=== PATIENT | female | born 1965 | race Two or more races ===

== ENCOUNTER → 2016-11-04 | Outpatient (REF) | payer OTHER ==
[~2016-11-04] MED LIST: /QUET10TA OR; AMBI10TA; ATIV0.5T; CELE20TA OR; CELE40TA; CLARITIN PO; CLARITIN10 PO; IBUP80TA PO; LEVO750T PO; NAPROS500 PO; PRIL40CA PO; ULTR50TA PO; ZITH250T OR
== END ==
LOC: M SFHCADAM 09:38
PROVIDERS: ATTEND Family Medicine
DX: R35.0 Frequency of micturition (principal)

== ENCOUNTER 2016-11-12 04:08 | Emergency (ER) | payer OTHER ==
[~2016-11-12] VITALS: Ht 157.5 cm; Wt 59.0 kg
[2016-11-12 04:18] VITALS: BP 106/71
== END 2016-11-12 05:45 | disposition left against medical advice (07) ==
LOC: M ED 05:38
DX: R05 Cough (principal); Z53.21 Procedure and treatment not carried out due to patient leaving prior to being seen by health care provider

== ENCOUNTER → 2016-11-16 | Outpatient (REF) | payer OTHER ==
[2016-11-16 12:36] LABS: BASO # 0.1 K/mm3 (0.0-0.2); BASO % 0.4 % (0.0-1.0); EOS # 0.5 K/mm3 (0.0-0.50); EOS % 3.2 % (0.0-3.0); LARGE UNSTAINED CELL # 0.2 K/mm3 (0.0-0.4); LARGE UNSTAINED CELL % 1.2 % (0.0-4.0); LYMPH # 3.1 K/mm3 (1.5-4.5); LYMPH % 18.9 % (24.0-44.0); MEAN CORPUSCULAR HEMOGLOBIN 34.8 pg (27.0-33.0); MEAN CORPUSCULAR HGB CONC 33.2 g/dl (32.0-36.5); MEAN CORPUSCULAR VOLUME 104.8 fl (80.0-96.0); MONO # 0.7 K/mm3 (0.0-0.8); NEUTROPHILS # 11.9 K/mm3 (1.8-7.7); NEUTROPHILS % 72.2 % (36.0-66.0); PLATELET COUNT, AUTOMATED 284 k/mm3 (150-450); RED CELL DISTRIBUTION WIDTH 11.9 % (11.5-14.5); WHITE BLOOD COUNT 16.5 K/mm3 (4.0-10.0)
[2016-11-16 12:46] LABS: ALBUMIN 3.5 GM/DL (3.2-5.2); ALKALINE PHOSPHATASE 85 U/L (45-117); ALT/SGPT 22 U/L (12-78); ANION GAP 7 MEQ/L (8-16); AST/SGOT 16 U/L (15-37); BILIRUBIN,TOTAL 0.5 MG/DL (0.2-1.0); BLOOD UREA NITROGEN 11 MG/DL (7-18); CALCIUM LEVEL 9.1 MG/DL (8.5-10.1); CARBON DIOXIDE LEVEL 28 MEQ/L (21-32); CHLORIDE LEVEL 108 MEQ/L (98-107); CHOLESTEROL LEVEL 224 MG/DL (<200); CREATININE FOR GFR 0.91 MG/DL (0.55-1.02); GLOMERULAR FILTRATION RATE > 60.0 (>51); GLUCOSE, FASTING 133 MG/DL (70-105); POTASSIUM SERUM 3.9 MEQ/L (3.5-5.1); SODIUM LEVEL 143 MEQ/L (136-145); TOTAL PROTEIN 7.1 GM/DL (6.4-8.2); TRIGLYCERIDES LEVEL 248 MG/DL (<150)
[2016-11-16 12:47] LABS: ALBUMIN/GLOBULIN RATIO 0.97 (1.00-1.93)
== END ==
LOC: M SFHCADAM 09:02
PROVIDERS: ATTEND Family Medicine
DX: Z00.00 Encounter for general adult medical examination without abnormal findings (principal)

== ENCOUNTER → 2016-11-19 | Outpatient (CLI) | payer OTHER ==
--- NOTE | 2016-11-19 11:55 | REPMRS ---
Patient History The patient states she had a clinical breast exam in October 2016. Benign stereotactic core biopsy of the left breast, November 21, 2010. Digital Mammo Screening Bilat: November 19, 2016 - Exam #: [id number] Bilateral CC and MLO view(s) were taken. Technologist: Aurora Gomez Technologist Prior study comparison: April 24, 2014, bilateral digital mammo screening bilat performed at [facility]. February 17, 2013, digital mammo diagnostic bilateral performed at [facility]. FINDINGS: The breast tissue is heterogeneously dense. This may lower the sensitivity of mammography. There is a moderate amount of heterogeneously dense fibroglandular tissue which is fairly symmetric. There is no interval development of dominant mass, architectural distortion, or clustered microcalcification typical of malignancy. There has been no change in the appearance of the mammogram from the prior studies. ASSESSMENT: BI-RADS/ACR category 1 mammogram. Negative. Recommendation Routine screening mammogram of both breasts in 1 year (for women over age 40). This mammogram was interpreted with the aid of an FDA-approved computer-aided dectection system. Electronically Signed By: Holland Thomas MD 11/19/16 0908
== END ==
LOC: M RAD 10:07
PROVIDERS: ATTEND Family Medicine
DX: Z12.31 Encounter for screening mammogram for malignant neoplasm of breast (principal)

== ENCOUNTER → 2016-11-19 | Outpatient (CLI) | payer OTHER ==
[2016-11-19 12:11] LABS: FREE T4 0.96 NG/DL (0.76-1.46)
== END ==
LOC: M LAB 10:45
PROVIDERS: ATTEND Family Medicine
DX: D75.89 Other specified diseases of blood and blood-forming organs (principal)

== ENCOUNTER 2016-12-22 07:07 | Emergency (ER) | payer OTHER ==
[~2016-12-22] VITALS: Ht 160 cm; Wt 59.1 kg
[2016-12-22] MEDS ORDERED: NAPROXEN 250 MG TAB PO ONE (07:30)
[2016-12-22] MEDS ORDERED: TYLE325T5 PO (08:16)
[2016-12-22] MEDS ORDERED: NAPR500T PO (08:16)
[2016-12-22 08:22] VITALS: BP 107/60
== END 2016-12-22 08:24 | disposition home or self-care (01) ==
LOC: M ED 07:33
DX: N64.4 Mastodynia (principal); M79.622 Pain in left upper arm; M54.9 Dorsalgia, unspecified; G89.29 Other chronic pain; F17.200 Nicotine dependence, unspecified, uncomplicated

== ENCOUNTER 2017-02-15 00:15 | Emergency (ER) | payer OTHER ==
[~2017-02-15] VITALS: Ht 160 cm; Wt 59.0 kg
[~2017-02-15 00:15] MED LIST changes: +NAPR500T PO; +TYLE325T5 PO
[2017-02-15 00:30] VITALS: BP 108/63
== END 2017-02-15 01:36 | disposition left against medical advice (07) ==
LOC: M ED 00:15
DX: N64.9 Disorder of breast, unspecified (principal); Z53.29 Procedure and treatment not carried out because of patient's decision for other reasons

== ENCOUNTER → 2017-03-08 | Outpatient (REF) | payer OTHER ==
[~2017-03-08] MED LIST changes: +AMOX500C PO; +FLON1SPR
[2017-03-08 12:49] LABS: BASO % 0.5 % (0.0-1.0); EOS # 0.1 K/mm3 (0.0-0.50); EOS % 1.2 % (0.0-3.0); LARGE UNSTAINED CELL # 0.2 K/mm3 (0.0-0.4); LARGE UNSTAINED CELL % 1.7 % (0.0-4.0); LYMPH # 3.2 K/mm3 (1.5-4.5); LYMPH % 28.3 % (24.0-44.0); MEAN CORPUSCULAR HEMOGLOBIN 33.5 pg (27.0-33.0); MEAN CORPUSCULAR HGB CONC 32.4 g/dl (32.0-36.5); MEAN CORPUSCULAR VOLUME 103.3 fl (80.0-96.0); MONO # 0.7 K/mm3 (0.0-0.8); MONO % 6.9 % (0.0-5.0); NEUTROPHILS # 6.6 K/mm3 (1.8-7.7); NEUTROPHILS % 61.5 % (36.0-66.0); PLATELET COUNT, AUTOMATED 297 k/mm3 (150-450); RED CELL DISTRIBUTION WIDTH 12.3 % (11.5-14.5); WHITE BLOOD COUNT 10.8 K/mm3 (4.0-10.0)
== END ==
LOC: M SFHCADAM 10:11
PROVIDERS: ATTEND Family Medicine
DX: D75.89 Other specified diseases of blood and blood-forming organs (principal)

== ENCOUNTER → 2017-03-18 | Outpatient (REF) | payer OTHER ==
[2017-03-18 14:08] LABS: FREE T4 0.92 NG/DL (0.76-1.46)
== END ==
LOC: M SFHCADAM 10:50
PROVIDERS: ATTEND Family Medicine
DX: F32.89 Other specified depressive episodes (principal)

== ENCOUNTER 2017-03-20 03:03 | Emergency (ER) | payer OTHER ==
[~2017-03-20] VITALS: Ht 160 cm; Wt 58.6 kg
[~2017-03-20 03:03] MED LIST changes: -AMOX500C PO; -FLON1SPR
[2017-03-20] MEDS ORDERED: ACETAMINOPHEN 325 MG TAB PO ONE (07:45)
[2017-03-20] MEDS ORDERED: FLON1SPR (08:12)
[2017-03-20 08:39] VITALS: BP 116/66
== END 2017-03-20 08:41 | disposition home or self-care (01) ==
LOC: M ED 03:03
DX: J06.9 Acute upper respiratory infection, unspecified (principal); F17.210 Nicotine dependence, cigarettes, uncomplicated

== ENCOUNTER → 2017-05-06 | Outpatient (REF) | payer OTHER ==
[~2017-05-06] MED LIST changes: +AMOX500C PO; +FLON1SPR
== END ==
LOC: M LAB REF 09:34
PROVIDERS: ATTEND Physician Assistant
DX: M54.5 Low back pain (principal)

== ENCOUNTER 2017-05-07 04:40 | Emergency (ER) | payer OTHER ==
[~2017-05-07] VITALS: Ht 160 cm; Wt 59.0 kg
[~2017-05-07 04:40] MED LIST changes: -AMOX500C PO
[2017-05-07] MEDS ORDERED: AMOXICILLIN 500 MG CAP PO ONE (05:30)
[2017-05-07] MEDS ORDERED: AMOX500C PO (05:45)
[2017-05-07 05:52] VITALS: BP 100/62
== END 2017-05-07 05:57 | disposition home or self-care (01) ==
LOC: M ED 04:40
DX: J32.1 Chronic frontal sinusitis (principal); F17.210 Nicotine dependence, cigarettes, uncomplicated; Z79.51 Long term (current) use of inhaled steroids

== ENCOUNTER 2017-12-29 07:23 | Emergency (ER) | payer OTHER ==
[2017-12-29 10:34] LABS: AMPHETAMINES LEVEL URINE NEGATIVE (NEGATIVE); BARBITURATES URINE NEGATIVE (NEGATIVE); BENZODIAZEPINES URINE NEGATIVE (NEGATIVE); CANNABINOIDS URINE NEGATIVE (NEGATIVE); COCAINE METABOLITE URINE POSITIVE (NEGATIVE); METHADONE URINE NEGATIVE (NEGATIVE); OPIATES URINE NEGATIVE (NEGATIVE); PHENCYCLIDINE URINE NEGATIVE (NEGATIVE)
== END 2017-12-29 10:44 | disposition home or self-care (01) ==
LOC: M ED 07:23
DX: R51 Headache (principal); F14.10 Cocaine abuse, uncomplicated; F12.10 Cannabis abuse, uncomplicated; F32.9 Major depressive disorder, single episode, unspecified; F17.210 Nicotine dependence, cigarettes, uncomplicated
CPT/HCPCS: 70450

== ENCOUNTER → 2018-03-02 | Outpatient (CLI) | payer MEDICAID | LOC: M OUTALCOH 07:58 | DX: F14.20 Cocaine dependence, uncomplicated (principal) ==

== ENCOUNTER → 2018-04-09 | Outpatient (REF) | payer OTHER ==
[2018-04-09 19:03] LABS: APPEARANCE, URINE CLEAR (CLEAR); BACTERIA, URINE AUTO NEGATIVE (NEGATIVE); BILIRUBIN, URINE AUTO NEGATIVE (NEGATIVE); BLOOD, URINE BLOOD 1+ (NEGATIVE); COLOR, URINE YELLOW (YELLOW); GLUCOSE, URINE (UA) AUTO NEGATIVE (NEGATIVE); KETONE, URINE AUTO NEGATIVE (NEGATIVE); LEUKOCYTE ESTERASE, URINE AUTO NEGATIVE (NEGATIVE); NITRITE, URINE AUTO NEGATIVE (NEGATIVE); PROTEIN, URINE AUTO NEGATIVE (NEGATIVE); RBC, URINE AUTO 3 /HPF (0-3); SPECIFIC GRAVITY URINE AUTO 1.016 (1.002-1.035); SQUAMOUS EPITHELIAL CELL UR AU 3 /HPF (0-6); WBC, URINE AUTO 1 /HPF (0-3)
== END ==
LOC: M LAB REF 10:36
DX: N39.0 Urinary tract infection, site not specified (principal)
CPT/HCPCS: 81001

== ENCOUNTER 2018-04-11 14:36 | Emergency (ER) | payer OTHER, MEDICAID ==
[2018-04-11 15:12] LABS: BASO % 0.3 % (0.0-1.0); EOS # 0.1 10^3/uL (0.0-0.50); HEMATOCRIT 42.4 % (36.0-47.0); HEMOGLOBIN 14.5 g/dl (12.0-15.5); IMMATURE GRANULOCYTE % 0.4 % (0-3.0); LYMPH % 29.7 % (24.0-44.0); MEAN CORPUSCULAR HEMOGLOBIN 34.2 pg (27.0-33.0); MEAN CORPUSCULAR HGB CONC 34.2 g/dl (32.0-36.5); MONO # 0.7 10^3/uL (0.0-0.8); MONO % 7.2 % (0.0-5.0); NEUTROPHILS # 6.2 10^3/uL (1.8-7.7); NEUTROPHILS % 61.4 % (36.0-66.0); PLATELET COUNT, AUTOMATED 289 10^3/uL (150-450); RED BLOOD COUNT 4.24 10^6/uL (4.00-5.40); RED CELL DISTRIBUTION WIDTH 13.4 % (11.5-14.5); WHITE BLOOD COUNT 10.1 10^3/uL (4.0-10.0)
[2018-04-11 15:15] LABS: KETONE, URINE AUTO RFX TRACE mg/dL (NEGATIVE); LEUKOCYTE ESTERASE UR AUTO RFX NEGATIVE (NEGATIVE); MUCUS, URINE RFX SMALL (NEGATIVE); NITRITE, URINE AUTO RFX NEGATIVE (NEGATIVE); RBC, URINE AUTO RFX 2 /HPF (0-3); SPECIFIC GRAVITY UR AUTO RFX 1.023 (1.002-1.035); SQUAM EPITHELIAL CELL UR AURFX 5 /HPF (0-6); WBC, URINE AUTO RFX 1 /HPF (0-3)
[2018-04-11 15:22] LABS: INR 0.92; PARTIAL THROMBOPLASTIN TIME 30.5 SECONDS (25.4-37.6); PROTHROMBIN TIME 12.5 SECONDS (12.1-14.4)
[2018-04-11 15:39] LABS: ALBUMIN 3.7 GM/DL (3.2-5.2); ALBUMIN/GLOBULIN RATIO 1.23 (1.00-1.93); ALKALINE PHOSPHATASE 100 U/L (45-117); ALT/SGPT 21 U/L (12-78); AMYLASE 58 U/L (25-115); ANION GAP 6 MEQ/L (8-16); AST/SGOT 20 U/L (7-37); BILIRUBIN,DIRECT < 0.1 MG/DL (0.0-0.2); BILIRUBIN,TOTAL 0.2 MG/DL (0.2-1.0); BLOOD UREA NITROGEN 17 MG/DL (7-18); CALCIUM LEVEL 9.4 MG/DL (8.5-10.1); CARBON DIOXIDE LEVEL 30 MEQ/L (21-32); CHLORIDE LEVEL 111 MEQ/L (98-107); CREATININE FOR GFR 0.87 MG/DL (0.55-1.30); GLOMERULAR FILTRATION RATE > 60.0 (>51); GLUCOSE, FASTING 96 MG/DL (70-100); LIPASE 75 U/L (73-393); POTASSIUM SERUM 4.6 MEQ/L (3.5-5.1); SODIUM LEVEL 147 MEQ/L (136-145); TOTAL PROTEIN 6.7 GM/DL (6.4-8.2)
[2018-04-11] MEDS: KETOROLAC TROMETHAMINE 10 MG TAB PO (17:54)
[2018-04-11] MEDS: METHOCARBAMOL 750 MG TAB PO (17:54)
== END 2018-04-11 18:11 | disposition home or self-care (01) ==
LOC: M ED 14:36
DX: M54.5 Low back pain (principal); F17.210 Nicotine dependence, cigarettes, uncomplicated
CPT/HCPCS: 74176

== ENCOUNTER 2018-04-29 01:56 | Emergency (ER) | payer OTHER ==
[2018-04-29 03:09] LABS: AMPHETAMINES LEVEL URINE NEGATIVE (NEGATIVE); BARBITURATES URINE NEGATIVE (NEGATIVE); BENZODIAZEPINES URINE NEGATIVE (NEGATIVE); CANNABINOIDS URINE NEGATIVE (NEGATIVE); COCAINE METABOLITE URINE POSITIVE (NEGATIVE); METHADONE URINE NEGATIVE (NEGATIVE); OPIATES URINE NEGATIVE (NEGATIVE); PHENCYCLIDINE URINE NEGATIVE (NEGATIVE)
== END 2018-04-29 06:17 | disposition home or self-care (01) ==
LOC: M ED 01:56
DX: Z76.5 Malingerer [conscious simulation] (principal); F91.0 Conduct disorder confined to family context; F32.9 Major depressive disorder, single episode, unspecified; Z72.0 Tobacco use; Z79.899 Other long term (current) drug therapy
CPT/HCPCS: 80307

== ENCOUNTER → 2018-12-01 | Outpatient (CLI) | payer OTHER ==
[~2018-12-01] MED LIST changes: -/QUET10TA OR; +AMOX500C PO; +BENZ200C70 PO; +DICL50TA2 PO; +FLON1SPR NARES; +IBUP-1022 PO; +NAPR-837 PO; -NAPR500T PO; +ROBA500T PO; +SERO1TAB OR; +SULF1TAB93 PO
--- NOTE | 2018-12-02 02:46 | REP ---
Clinical: Cough . Comparison: 04/17/1960 . Technique: PA and lateral. Findings: The mediastinum and cardiac silhouette are normal. The lung gardner are clear and without acute consolidation, effusion, or pneumothorax. The skeletal structures are intact and normal. Impression: 1. No acute cardiopulmonary process. Electronically Signed by José Miguel Snider MD 12/02/2018 02:38 A
== END ==
LOC: M ADAMS 10:03
PROVIDERS: ATTEND Family Medicine
DX: R05 Cough (principal)

== ENCOUNTER 2019-02-12 20:45 | Emergency (ER) | payer OTHER ==
[~2019-02-12] VITALS: Ht 160 cm; Wt 59.1 kg
[2019-02-12] MEDS ORDERED: NS 1,000 ML IV ONE ×2 (21:15→23:15)
[2019-02-12 21:50] LABS: BASO # 0.1 10^3/uL (0.0-0.2); BASO % 0.5 % (0.0-1.0); EOS # 0.1 10^3/uL (0.0-0.50); EOS % 0.6 % (0.0-3.0); HEMATOCRIT 46.5 % (36.0-47.0); HEMOGLOBIN 15.6 g/dl (12.0-15.5); LYMPH # 2.1 10^3/uL (1.5-4.5); LYMPH % 21.2 % (24.0-44.0); MEAN CORPUSCULAR HGB CONC 33.5 g/dl (32.0-36.5); MEAN CORPUSCULAR VOLUME 104.3 fl (80.0-96.0); MONO # 0.6 10^3/uL (0.0-0.8); MONO % 5.9 % (0.0-5.0); NEUTROPHILS # 7.1 10^3/uL (1.8-7.7); PLATELET COUNT, AUTOMATED 279 10^3/uL (150-450); RED BLOOD COUNT 4.46 10^6/uL (4.00-5.40)
[2019-02-12 22:13] LABS: OSMOLALITY SERUM 326 MOSM/KG (275-295)
[2019-02-12 22:38] LABS: ACETAMINOPHEN LEVEL < 2.0 UG/ML (10.0-30.0); ALBUMIN 3.8 GM/DL (3.2-5.2); ALT/SGPT 25 U/L (12-78); BILIRUBIN,DIRECT < 0.1 MG/DL (0.0-0.2); BILIRUBIN,TOTAL 0.3 MG/DL (0.2-1.0); BLOOD UREA NITROGEN 11 MG/DL (7-18); CALCIUM LEVEL 9.1 MG/DL (8.5-10.1); CARBON DIOXIDE LEVEL 23 MEQ/L (21-32); CHLORIDE LEVEL 109 MEQ/L (98-107); CPK CREATINE PHOSPHOKINASE 220 U/L (26-192); CREATININE FOR GFR 0.76 MG/DL (0.55-1.30); ETHYL ALCOHOL (ETHANOL) 0.118 % (0.000-0.010); GLOMERULAR FILTRATION RATE > 60.0 (>51); GLUCOSE, FASTING 107 MG/DL (70-100); MAGNESIUM LEVEL 2.2 MG/DL (1.8-2.4); POTASSIUM SERUM 4.4 MEQ/L (3.5-5.1); SALICYLATE LEVEL 3.6 MG/DL (5.0-30.0); SODIUM LEVEL 143 MEQ/L (136-145); THYROID STIMULATING HORMONE 0.427 uIU/ML (0.358-3.740); TOTAL PROTEIN 7.6 GM/DL (6.4-8.2)
[2019-02-12] MEDS ORDERED: ISOVUE-370 76% 100ML VIAL (Q9967) As Ordered ONE (23:26)
--- NOTE | 2019-02-13 00:39 | REPVR ---
EXAM: CT Head Without Contrast EXAM DATE/TIME: 02/12/2019 11:37 PM CLINICAL HISTORY: 53 years old, female; Injury or trauma; Fall; Initial encounter; Blunt trauma (contusions or hematomas); Additional info: Abdominal pain/fall TECHNIQUE: Imaging protocol: Computed tomography images of the head without contrast. Radiation optimization: All CT scans at this facility use at least one of these dose optimization techniques: automated exposure control; mA and/or kV adjustment per patient size (includes targeted exams where dose is matched to clinical indication); or iterative reconstruction. COMPARISON: CT Head without contrast 12/29/2017 9:14 AM FINDINGS: Brain: No CT evidence of acute intracranial hemorrhage or acute territorial infarction. No significant mass effect or midline shift. Basal cisterns patent. Ventricles: Normal in size and configuration. Bones/joints: No acute osseous abnormality. Sinuses: Minimal ethmoid mucosal thickening. Mastoid air cells: Grossly unremarkable. Soft tissues: Grossly unremarkable. IMPRESSION: 1. No CT evidence of acute intracranial pathology. 2. Additional findings, as above. Electronically signed by: Cristóbal Qiu On 02/13/2019 00:39:37 AM
--- NOTE | 2019-02-13 00:42 | REPVR ---
EXAM: CT Cervical Spine Without Contrast EXAM DATE/TIME: 02/12/2019 11:37 PM CLINICAL HISTORY: 53 years old, female; Injury or trauma; Fall; Initial encounter; Blunt trauma; Additional info: Abdominal pain/fall TECHNIQUE: Imaging protocol: Computed tomography images of the cervical spine without contrast. Coronal and sagittal reformatted images were created and reviewed. Radiation optimization: All CT scans at this facility use at least one of these dose optimization techniques: automated exposure control; mA and/or kV adjustment per patient size (includes targeted exams where dose is matched to clinical indication); or iterative reconstruction. COMPARISON: No relevant prior studies available. FINDINGS: Vertebrae: Osteopenia. Reversal of the normal cervical lordosis. Alignment anatomic. No CT evidence of acute fracture, dislocation or subluxation. Vertebral body heights maintained. Discs/Spinal canal/Neural foramina: Mild multilevel spondylosis. No significant spinal canal or neural foraminal stenosis. Soft tissues: Grossly unremarkable. Lungs: Biapical emphysematous change. IMPRESSION: 1. No CT evidence of acute cervical spine traumatic injury. 2. Additional findings, as above. Electronically signed by: Cristóbal Qiu On 02/13/2019 00:42:17 AM
--- NOTE | 2019-02-13 00:46 | REPVR ---
EXAM: CT Chest With Contrast EXAM DATE/TIME: 02/12/2019 11:37 PM CLINICAL HISTORY: 53 years old, female; Chest pain; Other: Abd pain; Additional info: Abdominal pain TECHNIQUE: Imaging protocol: Axial computed tomography images of the chest with intravenous contrast. Coronal and sagittal reformatted images were created and reviewed. Radiation optimization: All CT scans at this facility use at least one of these dose optimization techniques: automated exposure control; mA and/or kV adjustment per patient size (includes targeted exams where dose is matched to clinical indication); or iterative reconstruction. Contrast material: ISOVUE 370;Contrast volume: 100 ml;Contrast route: IV; COMPARISON: No relevant prior studies available. FINDINGS: Lungs: Mild to moderate emphysema with an apical predominance. Mild linear stranding and groundglass, likely due to atelectasis and/or scarring. No focal consolidation. Pleural space: Unremarkable. No pneumothorax. No pleural effusion. Heart: Unremarkable. No cardiomegaly. No pericardial effusion. Mediastinum: Small hiatal hernia. Aorta: Unremarkable. No aneurysm or dissection. Lymph nodes: Small mediastinal lymph nodes, nonspecific in appearance. No pathologically enlarged lymph nodes. Bones/joints: No acute osseous abnormality. Osteopenia. Mild degenerative changes. Soft tissues: Unremarkable. IMPRESSION: 1. No CT evidence of acute intrathoracic traumatic injury. 2. Additional findings, as above. Electronically signed by: Cristóbal Qiu On 02/13/2019 00:45:50 AM
--- NOTE | 2019-02-13 00:51 | REPVR ---
EXAM: CT Abdomen and Pelvis With Contrast EXAM DATE/TIME: 02/12/2019 11:37 PM CLINICAL HISTORY: 53 years old, female; Abdominal pain; Generalized TECHNIQUE: Imaging protocol: Axial computed tomography images of the abdomen and pelvis with intravenous contrast. Coronal and sagittal reformatted images were created and reviewed. Radiation optimization: All CT scans at this facility use at least one of these dose optimization techniques: automated exposure control; mA and/or kV adjustment per patient size (includes targeted exams where dose is matched to clinical indication); or iterative reconstruction. Contrast material: ISOVUE 370;Contrast volume: 100 ml;Contrast route: IV; COMPARISON: CT ABD PELVIS W/O CONTRAST 04/11/2018 2:44 PM FINDINGS: Liver: Diffuse hepatic steatosis. Gallbladder and bile ducts: No radiodense gallstones. No biliary ductal dilatation. Pancreas: Unremarkable. Spleen: Unremarkable. Adrenals: Unremarkable. Kidneys and ureters: 2.5 x 2.1 cm right renal cyst. No radiodense calculi. No hydronephrosis. Stomach and bowel: Moderate amount of retained stool in the colon. Scattered colonic diverticula without evidence of diverticulitis. No obstruction. No bowel wall thickening. No pneumatosis. Appendix: Normal. Intraperitoneal space: No free fluid. No organized fluid collection. No free air. Vasculature: Minimal atherosclerotic disease. No aneurysm or dissection. Lymph nodes: No pathologically enlarged lymph nodes. Bladder: Unremarkable. Reproductive: Unremarkable. Bones/joints: No acute osseous abnormality. Osteopenia. Mild degenerative changes. Soft tissues: Unremarkable. IMPRESSION: 1. No CT evidence of acute intra-abdominal or pelvic traumatic injury. 2. Additional findings, as above. Electronically signed by: Cristóbal Qiu On 02/13/2019 00:51:02 AM
[2019-02-13 01:36] LABS: CK-MB VALUE MASS 2.7 NG/ML (<3.6); CPK CREATINE PHOSPHOKINASE 142 U/L (26-192); TROPONIN I < 0.02 NG/ML (< 0.10)
[2019-02-13 01:42] LABS: AMPHETAMINES LEVEL URINE NEGATIVE (NEGATIVE); BARBITURATES URINE NEGATIVE (NEGATIVE); BENZODIAZEPINES URINE NEGATIVE (NEGATIVE); CANNABINOIDS URINE NEGATIVE (NEGATIVE); COCAINE METABOLITE URINE NEGATIVE (NEGATIVE); METHADONE URINE NEGATIVE (NEGATIVE); OPIATES URINE NEGATIVE (NEGATIVE); PHENCYCLIDINE URINE NEGATIVE (NEGATIVE)
[2019-02-13 04:18] VITALS: BP 129/74
--- NOTE | 2019-02-13 07:08 | REP ---
Portable chest, 10:01 p.m., single AP view with the patient supine: Comparison is 04/17/2016. The lung gardner are clear. Cardiac size is normal. The ree, mediastinum, skeletal structures are unremarkable per The discoid atelectasis identified inferiorly in the right lung on the comparison study has resolved. Impression: Essentially negative portable chest, with the the patient supine. Electronically Signed by Daniel Gomez MD 02/13/2019 07:00 A
--- NOTE | 2019-02-14 10:10 | ECGEPIP ---
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
== END 2019-02-13 04:40 | disposition home or self-care (01) ==
LOC: M ED 20:45
DX: F10.129 Alcohol abuse with intoxication, unspecified (principal); Y90.0 Blood alcohol level of less than 20 mg/100 ml; F33.9 Major depressive disorder, recurrent, unspecified; E78.5 Hyperlipidemia, unspecified; F14.20 Cocaine dependence, uncomplicated; F17.210 Nicotine dependence, cigarettes, uncomplicated
CPT/HCPCS: 36415; 70450; 71045; 71260; 72125; 74177; 80048; 80076; 80307; 81001; 82550; 82553; 83605; 83735; 83930; 84443; 85025; 93005; 93041; 94760; 99285; G0480; Q9967

== ENCOUNTER → 2020-03-14 | Outpatient (REF) | payer OTHER, MEDICAID ==
[2020-03-14 14:25] LABS: APPEARANCE, URINE CLEAR (CLEAR); BACTERIA, URINE AUTO NEGATIVE (NEGATIVE); BILIRUBIN, URINE AUTO NEGATIVE (NEGATIVE); BLOOD, URINE BLOOD 1+ (NEGATIVE); COLOR, URINE YELLOW (YELLOW); GLUCOSE, URINE (UA) AUTO NEGATIVE (NEGATIVE); KETONE, URINE AUTO NEGATIVE (NEGATIVE); LEUKOCYTE ESTERASE, URINE AUTO NEGATIVE (NEGATIVE); NITRITE, URINE AUTO NEGATIVE (NEGATIVE); PROTEIN, URINE AUTO NEGATIVE (NEGATIVE); RBC, URINE AUTO 5 /HPF (0-3); SPECIFIC GRAVITY URINE AUTO 1.017 (1.002-1.035); SQUAMOUS EPITHELIAL CELL UR AU 1 /HPF (0-6); UROBILINOGEN, URINE AUTO 0.2 mg/dL (0.0-2.0); WBC, URINE AUTO 0 /HPF (0-3)
== END ==
LOC: M LAB REF 12:37
PROVIDERS: ATTEND Physician Assistant
DX: R35.0 Frequency of micturition (principal)

== ENCOUNTER → 2020-03-14 | Outpatient (REF) | payer OTHER, MEDICAID ==
[2020-03-14 17:10] LABS: BASO # 0.1 10^3/uL (0.0-0.2); BASO % 0.5 % (0.0-1.0); EOS # 0.1 10^3/uL (0.0-0.5); EOS % 1.2 % (0.0-3.0); HEMATOCRIT 48.2 % (36.0-47.0); HEMOGLOBIN 16.2 g/dl (12.0-15.5); LYMPH # 3.4 10^3/uL (1.5-5.0); LYMPH % 31.1 % (24.0-44.0); MEAN CORPUSCULAR HEMOGLOBIN 34.7 pg (27.0-33.0); MEAN CORPUSCULAR HGB CONC 33.6 g/dl (32.0-36.5); MEAN CORPUSCULAR VOLUME 103.2 fl (80.0-96.0); MONO # 0.9 10^3/uL (0.0-0.8); MONO % 7.8 % (0.0-5.0); NEUTROPHILS # 6.5 10^3/uL (1.5-8.5); NEUTROPHILS % 59.1 % (36.0-66.0); PLATELET COUNT, AUTOMATED 320 10^3/uL (150-450); RED BLOOD COUNT 4.67 10^6/uL (4.00-5.40)
[2020-03-14 17:23] LABS: ALBUMIN 3.8 GM/DL (3.2-5.2); ALT/SGPT 26 U/L (12-78); BILIRUBIN,TOTAL 0.4 MG/DL (0.2-1.0); BLOOD UREA NITROGEN 21 MG/DL (7-18); CARBON DIOXIDE LEVEL 28 MEQ/L (21-32); CHLORIDE LEVEL 105 MEQ/L (98-107); CHOLESTEROL LEVEL 290 MG/DL (<200); CHOLESTEROL RISK RATIO 5.471 (<5); CREATININE FOR GFR 0.86 MG/DL (0.55-1.30); FREE T4 0.89 NG/DL (0.76-1.46); GLOMERULAR FILTRATION RATE > 60.0 (>51); GLUCOSE, FASTING 87 MG/DL (70-100); HDL CHOLESTEROL 53 MG/DL (>40); LDL CHOLESTEROL 201 MG/DL (<100); NON-HDL-C 237 MG/DL; POTASSIUM SERUM 4.4 MEQ/L (3.5-5.1); SODIUM LEVEL 139 MEQ/L (136-145); THYROID STIMULATING HORMONE 0.338 uIU/ML (0.358-3.740); TOTAL PROTEIN 7.6 GM/DL (6.4-8.2); TRIGLYCERIDES LEVEL 180 MG/DL (<150)
== END ==
LOC: M LAB REF 16:24
PROVIDERS: ATTEND Physician Assistant
DX: E78.5 Hyperlipidemia, unspecified (principal); E03.9 Hypothyroidism, unspecified; R05 Cough

== ENCOUNTER → 2021-03-17 | Outpatient (CLI) | payer OTHER ==
[~2021-03-17] MED LIST changes: +BACTDSTA PO; -SULF1TAB93 PO
--- NOTE | 2021-03-17 14:10 | REP ---
INDICATION: NICOTINE DEPEND WHEEZING COUGH. COMPARISON: 02/12/2019 the only prior TECHNIQUE: Axial noncontrast images from the thoracic inlet to the upper abdomen using low-dose lung screening technique (LDCT). As per the protocol only lung window images were sent to the read station for interpretation FINDINGS: There is biapical pleuroparenchymal scarring status quo. There is mild lung field hyperexpansion with evidence of biapical emphysematous changes status quo. There is cylindrical bronchiectasis status quo. There are no new abnormal nodules, masses, or opacities. Grossly, the mediastinum and pulmonary ree are unchanged. Grossly, the imaged upper abdomen and imaged osseous structures are unchanged. IMPRESSION: Stable appearing chronic changes as described above. According to the revised Fleischner society criteria yearly CT screening is recommended if clinically relevant. <Electronically signed by Nico Gan > 03/17/21 1114
== END ==
LOC: M RAD 13:09
PROVIDERS: ATTEND Physician Assistant
DX: F17.210 Nicotine dependence, cigarettes, uncomplicated (principal); R06.2 Wheezing; R05 Cough

== ENCOUNTER 2021-04-13 14:32 | Emergency (ER) | payer OTHER ==
[~2021-04-13] VITALS: Ht 160 cm; Wt 65.0 kg
--- OUTSIDE RECORDS SUMMARY | 2021-04-13 14:39 | CCD ---
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 Active Not available albuterol sulfate HFA 90 mcg/actuation a erosol inhaler INHALE TWO PUFFS BY MOUTH EVERY 4 TO 6 HOURS NEEDED FOR COUGH Active Not available cetirizine 10 mg tablet TAKE ONE TABLET BY MOUTH EVERY DAY Active Not available fluticasone propionate 50 mcg/actuation nasal spray,suspension A ctive Not available Symbicort 80 mcg-4.5 mcg/actuation HFA a erosol inhaler Inhale 2 puffs every day by inhalation route. Unknown Not available Problems Name Status Onset Date Source Hypothyroidism Active 12/12/2013 History Nicotine Dependence Active 12/12/2013 History Cough Active 11/22/[address] Concept Unknown 11/22/2014 History Hyperlipidemia Active 03/08/2020 History Nasal Congestion Unknown 03/08/2020 History Increased Frequency of Urination Active 03/08/2020 History Screening for Malignant Neoplasm of Colon Active 2019 History Procedure by Method Unknown 03/08/2020 History Breast Neoplasm Screening Status Unknown 03/08/2020 History Asthma Active 03/07/2021 Procedures Date Name Performed by 03/07/2021 LDCT, Chest, for Lung Cancer Screening [facility] [address] [place] [address] (Work Place) 03/07/2021 MAMMO, Screening, Bilateral [facility] [address] [place] [address] (Work Place) Notes: hysterectomy-, tubal, dentures-te eth removed, cystes on head removed, Results Lab Results Date Name Specimen Result Interpretation Description Value Range Status Address 03/07/2021 Culture, Urine Urine clean catch ABNORMAL Cu lture, Urine, Routine see note Final [facility]: [address], [place] 03/07/2021 Urinalysis, Dipstick, Auto Normal Bilirubin ne g Final [facility]: [address], [place] Normal Blood +- Final [facility]: [address], [place] Normal Glucose neg Final [facility] ical: [address], [place] Normal Ketone +- Final [facility] Medi nallely: [address], [place] Normal Leukocytes neg Final [facility]: [address], [place] Normal Nitrite neg Final [facility]: [address], [place] Normal Ph 5.5 Final [facility]: [address], [place] Normal Protein neg Final [facility]: [address], [place] Normal Specific [place] 1.030 Final [facility]: [address], [place] Normal Urobilinogen 0.2 Final [facility]: [address], [place] Visual Acuity* R Eye Uncorrected 20/50 [facility]: [address], [place] L Eye Uncorrected 20/30 [facility]: [address], [place] Past Encounters 03/26/2021 Hyperlipidemia; Hypothyroidism; Mild Intermittent Asthma [place] [facility]: [address], [place] [address], Ph. 03/24/2021 Hyperlipidemia; Hypothyroidism; Mild Intermittent Asthma [place] [facility]: [address], [place] [address], Ph. 03/07/2021 Nicotine Dependence; Mild Intermittent Asthma; Increased Frequency of Urination; Female Stress Incontinence; Tobacco Dependence Caused by Cigarettes; Ophthalmic Examination and Evaluation; Hyperlipidemia; Hypothyroidism; Screening Mammography; Screening for Malignant Neoplasm of Colon [place], ZANDRA[facility]: [address] [facility], [place] [address], Ph. 10/22/2020 SARS-CoV-2 Vaccination Shai Chester MD: [address] [place] [address], Ph. 09/24/2020 SARS-CoV-2 Vaccination Shai Chester MD: [address] [place] [address], Ph. Social History Tobacco Smoking Status Heavy Tobacco Smoker (1/2 pack per a day) Vaccine List Vaccine Type COVID-19, mRNA, LNP-S, PF, 100 mcg/0.5 m L dose 10.5 mL 10.5 mL Plan of Care Reminders Provider Appointments None recorded. Lab None recorded. Referral None recorded. Procedures None recorded. Surgeries None recorded. Imaging None recorded. Vitals 03/07/2021 03:10PM ESTABLISHED [id number] Height Weight BMI Blood Pressure 66 in 143 lbs 23.1 kg/m2 121/85 mm[Hg] 03/08/2020 Height Weight BMI Blood Pressure 66 in 132 lbs 6.08 oz 21.44 kg/m2 118/77 mm[H g]
--- OUTSIDE RECORDS SUMMARY | 2021-04-13 14:39 | CCD ---
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 Active Not available Problems Name Status Onset Date [...] 03/07/2021 LDCT, Chest, for Lung Cancer Screening [facility] [address] [place] [address] (Work Place) 03/07/2021 MAMMO, Screening, Bilateral [facility] [address] [place] [address] (Work Place) Notes: hysterectomy-, tubal, dentures-te eth removed, cystes on head removed, Results Lab Results Date Name Specimen Result Interpretation Description Value Range Status Address 03/07/2021 Culture, Urine Urine clean catch ABNORMAL Cu lture, Urine, Routine see note Final [facility] [place]: [address], [place] 03/07/2021 Urinalysis, Dipstick, Auto Normal Bilirubin ne g Final [facility]: [address], [place] Normal Blood +- Final [facility]: [address], [place] Normal Glucose neg Final [facility]: [address], [place] Normal Ketone +- Final [facility]: [address], [place] Normal Leukocytes neg Final [facility]: [address], [place] Normal Nitrite neg Final [facility]: [address], [place] Normal Ph 5.5 Final [facility]: [address], [place] Normal Protein neg Final [facility]: [address], [place] Normal Specific [place] 1.030 Final [facility]: [address], [place] Normal Urobilinogen 0.2 Final [facility]: [address], [place] Visual Acuity* R Eye Uncorrected 20/50 [facility]: [address], [place] L Eye Uncorrected 20/30 [facility]: [address] [facility] [place] Past Encounters 03/24/2021 Hyperlipidemia; Hypothyroidism; Mild Intermittent Asthma [place] [facility]: [address] [facility] [address], [place] [address], Ph. 03/07/2021 Nicotine Dependence; Mild Intermittent Asthma; Increased Frequency of Urination; Female Stress Incontinence; Tobacco Dependence Caused by Cigarettes; Ophthalmic Examination and Evaluation; Hyperlipidemia; Hypothyroidism; Screening Mammography; Screening for Malignant Neoplasm of Colon [place] [facility]: [address] [facility] [address], [place] [address], Ph. 10/22/2020 SARS-CoV-2 Vaccination Shai Chester MD: [address] [place] [address], Ph. 09/24/2020 SARS-CoV-2 Vaccination Shai Chester MD: [address] [place] [address], Ph. Social History Tobacco Smoking Status Heavy Tobacco Smoker (1/2 pack per a day) Vaccine List Vaccine Type COVID-19, mRNA, LNP-S, PF, 100 mcg/0.5 m L dose 10.5 mL 10.5 mL Plan of Care Reminders Provider Appointments None recorded. Lab None recorded. Referral None recorded. Procedures None recorded. Surgeries None recorded. Imaging None recorded. Vitals 03/07/2021 03:10PM ESTABLISHED [id number] Height Weight BMI Blood Pressure 66 in 143 lbs 23.1 kg/m2 121/85 mm[Hg] 03/08/2020 Height Weight BMI Blood Pressure 66 in 132 lbs 6.08 oz 21.44 kg/m2 118/77 mm[H g]
--- OUTSIDE RECORDS SUMMARY | 2021-04-13 14:39 | CCD ---
Author Organization Unknown Address [address] [place] [address] Phone [phone] Care Team Providers Care Columnist/Commentator Name Role Phone [place] Unavailable Unavailable [...] 03/07/2021 LDCT, Chest, for Lung Cancer Screening [facility] [address] [place] [address] (Work Place) 03/07/2021 MAMMO, Screening, Bilateral [facility] [address] [place] [address] (Work Place) Notes: hysterectomy-, tubal, dentures-te eth removed, cystes on head removed, Results Lab Results Date Name Specimen Result Interpretation Description Value Range Status Address 03/07/2021 Culture, Urine Urine clean catch ABNORMAL Cu lture, Urine, Routine see note Final [facility] [place]: [address], [place] 03/07/2021 Urinalysis, Dipstick, Auto Normal Bilirubin ne g Final [facility]: [address], [place] Normal Blood +- Final [facility]: [address], [place] Normal Glucose neg Final [facility] Med ical: [address], [place] Normal Ketone +- Final [facility] Medi nallely: [address], [place] Normal Leukocytes neg Final [facility] Medical: [address], [place] Normal Nitrite neg Final [facility] ical: [address], [place] Normal Ph 5.5 Final [facility]: [address], [place] Normal Protein neg Final [facility] ical: [address], [place] Normal Specific [place] 1.030 Final [facility] Medical: [address], [place] Normal Urobilinogen 0.2 Final [facility] Medical: [address], [place] Visual Acuity* R Eye Uncorrected 20/50 [facility]: [address], [place] L Eye Uncorrected 20/30 [facility]: [address], [place] Past Encounters 03/07/2021 Nicotine Dependence; Mild Intermittent Asthma; Increased Frequency of Urination; Female Stress Incontinence; Tobacco Dependence Caused by Cigarettes; Ophthalmic Examination and Evaluation; Hyperlipidemia; Hypothyroidism; Screening Mammography; Screening for Malignant Neoplasm of Colon [place], RPA-C: [address], [place] [address], Ph. 10/22/2020 SARS-CoV-2 Vaccination Shai Chester MD: [address] [place] [address], Ph. 09/24/2020 SARS-CoV-2 Vaccination Shai Chester MD: [address] [place] [address], Ph. Social History Tobacco Smoking Status Heavy Tobacco Smoker (1/2 pack per a day) Vaccine List Vaccine Type COVID-19, mRNA, LNP-S, PF, 100 mcg/0.5 m L dose 10.5 mL 10.5 mL Plan of Care Reminders Provider Appointments None recorded. Lab None recorded. Referral None recorded. Procedures None recorded. Surgeries None recorded. Imaging None recorded. Vitals 03/07/2021 03:10PM ESTABLISHED [id number] Height Weight BMI Blood Pressure 66 in 143 lbs 23.1 kg/m2 121/85 mm[Hg] 03/08/2020 Height Weight BMI Blood Pressure 66 in 132 lbs 6.08 oz 21.44 kg/m2 118/77 mm[H g]
--- OUTSIDE RECORDS SUMMARY | 2021-04-13 14:40 | CCD ---
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 Name Role Phone Anup Chester MD Unavailable Unavailable Anup Chester MD Unavailable Unavailable Anup Chester MD Unavailable Unavailable Anup Chester MD Unavailable Unavailable Anup Chester MD Unavailable Unavailable Anup Chester MD Unavailable Unavailable Anup Chester MD Unavailable Unavailable Anup Chester MD Unavailable Unavailable Anup Chester MD Unavailable Unavailable Anup Chester MD Unavailable Unavailable Anup Chester MD Unavailable Unavailable Anup Chester MD Unavailable Unavailable Anup Chester MD Unavailable Unavailable Anup Chester MD Unavailable Unavailable Anup Chester MD Unavailable Unavailable Anup Chester MD Unavailable Unavailable Anup Chester MD Unavailable Unavailable Anup Chester MD Unavailable Unavailable Anup Chester MD Unavailable Unavailable Anup Chester MD Unavailable Unavailable Anup Chester MD Unavailable Unavailable Anup Chester MD Unavailable Unavailable Anup Chester MD Unavailable Unavailable Anup Chester MD Unavailable Unavailable Anup Chester MD Unavailable Unavailable Anup Chester MD Unavailable Unavailable Anup Chester MD Unavailable Unavailable Anup Chester MD Unavailable Unavailable Anup Chester MD Unavailable Unavailable Anup Chester MD Unavailable Unavailable Anup Chester MD Unavailable Unavailable Anup Chester MD Unavailable Unavailable Anup Chester MD Unavailable Unavailable Anup Chester MD Unavailable Unavailable Anup Chester MD Unavailable Unavailable Anup Chester MD Unavailable Unavailable Anup Chester MD Unavailable Unavailable Anup Chester MD Unavailable Unavailable Anup Chester MD Unavailable Unavailable Anup Chester MD Unavailable Unavailable Anup Chester MD Unavailable Unavailable Anup Chester MD Unavailable Unavailable Anup Chester MD Unavailable Unavailable Anup Chester MD Unavailable Unavailable Anup Chester MD Unavailable Unavailable Anup Chester MD Unavailable Unavailable Anup Chester MD Unavailable Unavailable Anup Chester MD Unavailable Unavailable Anup Chester MD Unavailable Unavailable Anup Chester MD Unavailable Unavailable Anup Chester MD Unavailable Unavailable Anup Chester MD Unavailable Unavailable Anup Chester MD Unavailable Unavailable Anup Chester MD Unavailable Unavailable Anup Chester MD Unavailable Unavailable Anup Chester MD Unavailable Unavailable Anup Chester MD Unavailable Unavailable Anup Chester MD Unavailable Unavailable Anup Chester MD Unavailable Unavailable Anup Chester MD Unavailable Unavailable Anup Chester MD Unavailable Unavailable Anup Chester MD Unavailable Unavailable Anup Chester MD Unavailable Unavailable Anup Chester MD Unavailable Unavailable Anup Chester MD Unavailable Unavailable Anup Chester MD Unavailable Unavailable Anup Chester MD Unavailable Unavailable Anup Chester MD Unavailable Unavailable Anup Chester MD Unavailable Unavailable Anup Chetser MD Unavailable Unavailable Anup Chester MD Unavailable Unavailable Anup Chester MD Unavailable Unavailable Anup Chester MD Unavailable Unavailable Anup Chester MD Unavailable Unavailable Anup Chester MD Unavailable Unavailable Anup Chester MD Unavailable Unavailable Anup Chester MD Unavailable Unavailable Anup Chester MD Unavailable Unavailable Anup Chester MD Unavailable Unavailable Anup Chester MD Unavailable Unavailable Anup Chester MD Unavailable Unavailable Anup Chester MD Unavailable Unavailable Anup Chester MD Unavailable Unavailable Anup Chester MD Unavailable Unavailable Anup Chester MD Unavailable Unavailable Anup Chester MD Unavailable Unavailable Chester, Anup Gibbons MD Unavailable Unavailable Chester, Anup Gibbosn MD Unavailable Unavailable Chester, Anup Gibbons MD Unavailable Unavailable Chester, Anup Gibbons MD Unavailable Unavailable Chester, Anup Gibbons MD Unavailable Unavailable Chester, Anup Gibbons MD Unavailable Unavailable Chester, Anup Gibbons MD Unavailable Unavailable GROVES, MAGDALENA RED RPA-C Unavailable Unavailable GROVES, MAGDALENA RED RPA-C Unavailable Unavailable GROVES, MAGDALENA RED RPA-C Unavailable Unavailable GROVES, MAGDALENA RED RPA-C Unavailable Unavailable GROVES, MAGDALENA RED RPA-C Unavailable Unavailable GROVES, MAGDALENA RED RPA-C Unavailable Unavailable GROVES, MAGDALENA RED RPA-C Unavailable Unavailable GROVES, MAGDALENA RED RPA-C Unavailable Unavailable GROVES, MAGDALENA RED RPA-C Unavailable Unavailable GROVES, MAGDALENA RED RPA-C Unavailable Unavailable GROVES, MAGDALENA RED RPA-C Unavailable Unavailable GROVES, MAGDALENA RED RPA-C Unavailable Unavailable GROVES, MAGDALENA RED RPA-C Unavailable Unavailable GROVES, MAGDALENA RED RPA-C Unavailable Unavailable GROVES, MAGDALENA RED RPA-C Unavailable Unavailable GROVES, MAGDALENA RED RPA-C Unavailable Unavailable GROVES, MAGDALENA RED RPA-C Unavailable Unavailable GROVES, MAGDALENA RED RPA-C Unavailable Unavailable GROVES, MAGDALENA RED RPA-C Unavailable Unavailable GROVES, MAGDALENA RED RPA-C Unavailable Unavailable GROVES, MAGDALENA RED RPA-C Unavailable Unavailable GROVES, MAGDALENA RED RPA-C Unavailable Unavailable GROVES, MAGDALENA RED RPA-C Unavailable Unavailable GROVES, MAGDALENA RED RPA-C Unavailable Unavailable GROVES, MAGDALENA RED RPA-C Unavailable Unavailable GROVES, MAGDALENA RED RPA-C Unavailable Unavailable GROVES, MAGDALENA RED RPA-C Unavailable Unavailable GROVES, MAGDALENA RED RPA-C Unavailable Unavailable GROVES, MAGDALENA RED RPA-C Unavailable Unavailable GROVES, MAGDALENA RED RPA-C Unavailable Unavailable GROVES, MAGDALENA RED RPA-C Unavailable Unavailable GROVES, MAGDALENA RED RPA-C Unavailable Unavailable GROVES, MAGDALENA RED RPA-C Unavailable Unavailable GROVES, MAGDALENA RED RPA-C Unavailable Unavailable GROVES, MAGDALENA RED RPA-C Unavailable Unavailable GROVES, MAGDALENA RED RPA-C Unavailable Unavailable GROVES, MAGDALENA RED RPA-C Unavailable Unavailable GROVES, MAGDALENA RED RPA-C Unavailable Unavailable GROVES, MAGDALENA RED RPA-C Unavailable Unavailable GROVES, MAGDALENA RED RPA-C Unavailable Unavailable GROVES, MAGDALENA RED RPA-C Unavailable Unavailable GROVES, MAGDALENA RED RPA-C Unavailable Unavailable GROVES, MAGDALENA RED RPA-C Unavailable Unavailable GROVES, MAGDALENA RED RPA-C Unavailable Unavailable GROVES, MAGDALENA RED RPA-C Unavailable Unavailable GROVES, MAGDALENA RED RPA-C Unavailable Unavailable GROVES, MAGDALENA RED RPA-C Unavailable Unavailable GROVES, MAGDALENA RED RPA-C Unavailable Unavailable GROVES, MAGDALENA RED RPA-C Unavailable Unavailable GROVES, MAGDALENA RED RPA-C Unavailable Unavailable GROVES, MAGDALENA RED RPA-C Unavailable Unavailable GROVES, MAGDALENA RED RPA-C Unavailable Unavailable GROVES, MAGDALENA RED RPA-C Unavailable Unavailable GROVES, MAGDALENA RED RPA-C Unavailable Unavailable GROVES, MAGDALENA RED RPA-C Unavailable Unavailable GROVES, MAGDALENA RED RPA-C Unavailable Unavailable GROVES, MAGDALENA RED RPA-C Unavailable Unavailable GROVES, MAGDALENA RED RPA-C Unavailable Unavailable GROVES, MAGDALENA RED RPA-C Unavailable Unavailable GROVES, MAGDALENA RED RPA-C Unavailable Unavailable GROVES, MAGDALENA RED RPA-C Unavailable Unavailable GROVES, MAGDALENA RED RPA-C Unavailable Unavailable GROVES, MAGDALENA RED RPA-C Unavailable Unavailable GROVES, MAGDALENA RED RPA-C Unavailable Unavailable GROVES, MAGDALENA RED RPA-C Unavailable Unavailable GROVES, MAGDALENA RED RPA-C Unavailable Unavailable GROVES, MAGDALENA RED RPA-C Unavailable Unavailable GROVES, MAGDALENA RED RPA-C Unavailable Unavailable GROVES, MAGDALENA RED RPA-C Unavailable Unavailable GROVES, MAGDALENA RDE RPA-C Unavailable Unavailable GROVES, MAGDALENA RED RPA-C Unavailable Unavailable GROVES, MAGDALENA RED RPA-C Unavailable Unavailable GROVES, MAGDALENA RED RPA-C Unavailable Unavailable GROVES, MAGDALENA RED RPA-C Unavailable Unavailable GROVES, MAGDALENA RED RPA-C Unavailable Unavailable GROVES, MAGDALENA RED RPA-C Unavailable Unavailable GROVES, MAGDALENA RED RPA-C Unavailable Unavailable GROVES, MAGDALENA RED RPA-C Unavailable Unavailable GROVES, MAGDALENA RED RPA-C Unavailable Unavailable GROVES, MAGDALENA RED RPA-C Unavailable Unavailable GROVES, MAGDALENA RED RPA-C Unavailable Unavailable GROVES, MAGDALENA RED RPA-C Unavailable Unavailable GROVES, MAGDALENA RED RPA-C Unavailable Unavailable GROVES, MAGDALENA RED RPA-C Unavailable Unavailable GROVES, MAGDALENA RED RPA-C Unavailable Unavailable GROVES, MAGDALENA RED RPA-C Unavailable Unavailable Re-disclosure Warning The records that you are about to access may contain information from federally-assisted alcohol or drug abuse programs. If such information is present, then the following federally mandated warning applies: This information has been disclosed to you from records protected by federal confidentiality rules (42 CFR part 2). The federal rules prohibit you from making any further disclosure of this information unless further disclosure is expressly permitted by the written consent of the person to whom it pertains or as otherwise permitted by 42 CFR part 2. A general authorization for the release of medical or other information is NOT sufficient for this purpose. The Federal rules restrict any use of the information to criminally investigate or prosecute any alcohol or drug abuse patient.The records that you are about to access may contain highly sensitive health information, the redisclosure of which is protected by Article 27-F of the [facility] Public [facility] law. If you continue you may have access to information: Regarding HIV / AIDS; Provided by facilities licensed or operated by the [facility] Office of Mental Health; or Provided by the [facility] Office for People With Developmental Disabilities. If such information is present, then the following [facility] mandated warning applies: This information has been disclosed to you from confidential records which are protected by state law. State law prohibits you from making any further disclosure of this information without the specific written consent of the person to whom it pertains, or as otherwise permitted by law. Any unauthorized further disclosure in violation of state law may result in a fine or half-way sentence or both. A general authorization for the release of medical or other information is NOT sufficient authorization for further disc losure. Allergies and Adverse Reactions Type Description Substance Reaction Status Data Source(s ) Allergy to substance Allergy to substance Allergy to substance [facility] ([facility]) Allergy to substance Allergy to substance Allergy to substance [facility] ([facility]) Family History Family Member Name Family Member Gender Family Member Status Date o f Status Description Data Source(s) Unknown Unknown Problem [facility] ([facility], [facility]) Encounters Encounter Providers Location Date Indications Data Source(s ) [place] RPA[place]C: [address], [place] [address], Ph. Attender: RED MUSEC [facility] Medical 03/26/2021 12:00:00 AM EDT [place] ([facility]) [place]C: [address], [place] [address], Ph. Attender: RED MUSEC [facility] Medical 03/24/2021 12:00:00 AM EDT [place] ([facility]) [place] RPA-C: [address], [place] [address], Ph. Attender: RED MUSEC [facility] Medical 03/24/2021 12:00:00 AM EDT [place] ([facility]) [place] RPA[facility]C: [address], [place] [address], Ph. Attender: RED MUSEC [facility] Medical 03/07/2021 12:00:00 AM EDT [place] ([facility]) [place] RPA-C: [address], [place] [address], Ph. Attender: RED GROVES RPA-C [facility] Medical 03/07/2021 12:00:00 AM EDT [place] ([facility]) [place] RPA[place]C: [address], [place] [address], Ph. Attender: RED PARMAR [facility] Medical 03/07/2021 12:00:00 AM EDT [facility] ([facility]) Shai Chester MD: [address] [place] [address], Ph. Attender: Shai Chester MD [facility] Medical 10/22/2020 12:00:00 AM EDT [place] ([facility]) Shai Chester MD: [address] [place] [address], Ph. Attender: Shai Chester MD [facility] Medical 10/22/2020 12:00:00 AM EDT [place] ([facility]) Shai Chester MD: [address] [place] [address], Ph. Attender: Shai Chester MD [facility] Medical 10/22/2020 12:00:00 AM EDT [facility] ([facility]) Shai Chester MD: [address] [place] [address], Ph. Attender: Shai Chester MD [facility] Medical 10/22/2020 12:00:00 AM EDT [facility] ([facility]) Shai Chester MD: [address] [place] [address], Ph. Attender: Shai Chester MD [facility] Medical 09/24/2020 12:00:00 AM EDT [facility] ([facility]) Shai Chester MD: [address] [place] [address], Ph. Attender: Shai Chester MD [facility] Medical 09/24/2020 12:00:00 AM EDT [facility] ([facility]) Shai Chester MD: [address] [place] [address], Ph. Attender: Shai Chester MD [facility] Medical 09/24/2020 12:00:00 AM EDT [facility] ([facility]) Shai Chester MD: [address] [place] [address], Ph. Attender: Shai Chester MD [facility] Medical 09/24/2020 12:00:00 AM EDT [facility] ([facility]) Shai Chester MD: [address] [place] [address], Ph. Attender: Shai Chester MD [facility] Medical 09/24/2020 12:00:00 AM EDT [facility] ([facility]) Outpatient Attender: RED GROVES RPA-C FP 04/02/2020 09:05:01 AM EDT [facility] Outpatient Attender: RED GROVES RPA-C FP 03/22/2020 06:03:00 PM EDT [facility] Outpatient Attender: RED GR[place]ES RPA-C FP 03/14/2020 02:32:01 PM EDT [facility] Outpatient Attender: RED GR[place] RPA-C FP 03/14/2020 02:31:59 PM EDT [facility] Outpatient Attender: RED GROVES RPA-C FP 03/14/2020 10:11:01 AM EDT [facility] Outpatient Attender: RED GROVES RPA-C FP 03/14/2020 09:24:01 AM EDT [facility] Outpatient Attender: RED GROVES RPA-C FP 03/11/2020 12:36:01 PM EDT [facility] Outpatient Attender: RED GROVES RPA-C FP 03/11/2020 11:31:01 AM EDT [facility] Outpatient Attender: RED GR[place] RPA-C FP 03/11/2020 11:26:02 AM EDT [facility] Outpatient Attender: RED GR[place] RPA-C FP 03/11/2020 07:29:00 AM EDT [facility] Outpatient Attender: RED GROVES RPA-C FP 03/08/2020 02:57:00 PM EDT [facility] Outpatient Attender: RED GROVES RPA-C FP 03/08/2020 02:02:07 PM EDT [facility] Outpatient Attender: RED GROVES RPA-C FP 03/08/2020 02:02:05 PM EDT [facility] Outpatient Attender: RED GROVES RPA-C FP 03/08/2020 02:02:04 PM EDT [facility] Outpatient Attender: RED GROVES RPA-C FP 03/08/2020 12:47:01 PM EDT [facility] Outpatient Attender: RED GROVES RPA-C FP 03/08/2020 12:43:00 PM EDT [facility] Immunizations Vaccine Date Status Description Data Source(s) COVID-19, mRNA, LNP-S, PF, 100 mcg/0.5 mL dose 10/22/2020 11 :36:39 AM EDT completed .5 mL [place] ([facility]) COVID-19, mRNA, LNP-S, PF, 100 mcg/0.5 mL dose 10/22/2020 11 :36:39 AM EDT completed .5 mL [place] ([facility]) COVID-19, mRNA, LNP-S, PF, 100 mcg/0.5 mL dose 10/22/2020 11 :36:39 AM EDT completed .5 mL [place] ([facility]) COVID-19, mRNA, LNP-S, PF, 100 mcg/0.5 mL dose 10/22/2020 11 :36:39 AM EDT completed .5 mL [facility] ([facility]) COVID-19 VACCINE Moderna 10/22/2020 12:00:00 AM EDT completed [facility] Vaccine Series Complete: YESThis Data wa s Submitted to [facility] Via [employer]. COVID-19, mRNA, LNP-S, PF, 100 mcg/0.5 mL dose 09/24/2020 11 :26:51 AM EDT completed .5 mL [facility] ([facility]) COVID-19, mRNA, LNP-S, PF, 100 mcg/0.5 mL dose 09/24/2020 11 :26:51 AM EDT completed .5 mL [place] ([facility]) COVID-19, mRNA, LNP-S, PF, 100 mcg/0.5 mL dose 09/24/2020 11 :26:51 AM EDT completed .5 mL [place] ([facility]) COVID-19, mRNA, LNP-S, PF, 100 mcg/0.5 mL dose 09/24/2020 11 :26:51 AM EDT completed .5 mL [place] ([facility]) COVID-19, mRNA, LNP-S, PF, 100 mcg/0.5 mL dose 09/24/2020 11 :26:51 AM EDT completed .5 mL [place] ([facility]) COVID-19 VACCINE Moderna 09/24/2020 12:00:00 AM EDT completed [facility] Vaccine Series Complete: NOThis Data was Submitted to [facility] Via [employer]. Medications No Information Insurance Providers Payer name Policy type / Coverage type Policy ID Covered green party ID Covered green party's relationship to barney Policy Barney Plan Information [id number] Medicaid P [id number] S [id number] UN COMMUNITY PLAN [facility] [id number] SP [id number] MEDICAID [id number] SP [id number] UNHC COMMUNITY PLAN [facility] [id number] SP [id number] Medicaid P [id number] S [id number] UNHC COMMUNITY PLAN [facility] [id number] SP [id number] [facility] I [id number] Self [id number] [facility] [id number] Self [id number] [facility] COMMUNITY PLAN [facility] [id number] SP [id number] Medicaid S [id number] S [id number] Managed Care - [facility] Community Plan P [id number] S [id number] ANSI-Not a Secondary Insurance [id number] [facility] [id number] SP [id number] UNHC COMMUNITY PLAN MCDO [id number] SP [id number] ANSI-Not a Secondary Insurance [id number] UN COMMUNITY PLAN MCDO [id number] [facility] [place] [id number] [facility] Health Maintenance [facility] [place] [id number] [facility] Health Maintenance Organization [place] [id number] Self [id number] [facility] COMMUNITY PLAN MCDO [id number] SP [id number] [facility] O [id number] S [id number] HC COMMUNITY PLAN MCDHMO [id number] SP [id number] MEDICAID M [id number] S [id number] MEDICAID [id number] SP [id number] [facility] [id number] SP [id number] UNHC COMMUNITY PLAN MCDO [id number] SP [id number] [place] [id number] SP [id number] SP [id number] Managed Care - [facility] Community Plan P UNAVAILABLE S UNAVAILABLE [facility]) O [id number] S [id number] ANSI-Medicaid [id number] ANSI-Medicaid [id number] ANSI-Medicaid [id number] ANSI-Medicaid [id number] ANSI-Medicaid [id number] ANSI-Medicaid [id number] Problems, Conditions, and Diagnoses Code Display Name Description Problem Type Effective Dates Data Source(s) 287917987 Asthma Asthma Problem 03/07/2021 12:00:00 AM ED T [place] ([facility]) [id number] Asthma Asthma Problem 03/07/2021 12:00:00 AM ED T [place] ([facility]) [id number] Asthma Asthma Problem 03/07/2021 12:00:00 AM ED T [place] ([facility]) V70.0 Encounter for general adult medical exam ination with abnormal findings Encounter for general adult medical examination with abnormal findings 03/08/2020 02:01:25 PM EDT [facility] 478.19 Congestion of nasal sinus Congestion of nasal sinus 03/08/2020 02:01:25 PM EDT [facility] [id number] Screening for malignant neoplasm of colo n Screening for malignant neoplasm of colon 03/08/2020 02:01:25 PM EDT [facility] R35.0 Frequency of micturition Frequency of urination 03/08/2020 02:01:25 PM EDT [facility] 272.4 Hyperlipidemia Hyperlipidemia 03/08/2020 02:01: 25 PM EDT [facility] [id number] Encounter for other screening for malign ant neoplasm of breast Encounter for other screening for malignant neoplasm of breast 03/08/2020 02:01:25 PM EDT [facility] [id number] Breast neoplasm screening status Breast Neoplasm Screening Status Problem 03/08/2020 12:00:00 AM EDT - 03/07/2021 12:00:00 AM ED T [facility] ([facility]) [id number] Procedure by method Procedure by Method Problem 0 03/08/2020 12:00:00 AM EDT - 03/07/2021 12:00:00 AM EDT [facility] ([facility]) [id number] Screening for malignant neoplasm of colo n Screening for Malignant Neoplasm of Colon Problem 03/08/2020 12:00:00 AM EDT [facility] ([facility]) 860302546 Increased frequency of urination Increased Frequ ency of Urination Problem 03/08/2020 12:00:00 AM EDT [facility] ([facility]) 11084168 Nasal congestion Nasal Congestion Problem 020 12:00:00 AM EDT - 03/07/2021 12:00:00 AM EDT [place] ([facility]) 50228494 Hyperlipidemia Hyperlipidemia Problem 03/08/2020 12:00: 00 AM EDT [place] ([facility]) 954840661 Breast neoplasm screening status Breast Neoplasm Screening Status Problem 03/08/2020 12:00:00 AM EDT - 03/07/2021 12:00:00 AM ED T [place] ([facility]) 210526458 Procedure by method Procedure by Method Problem 0 03/08/2020 12:00:00 AM EDT - 03/07/2021 12:00:00 AM EDT [place] ([facility]) 690962125 Screening for malignant neoplasm of colo n Screening for Malignant Neoplasm of Colon Problem 03/08/2020 12:00:00 AM EDT [place] ([facility]) 826794459 Increased frequency of urination Increased Frequ ency of Urination Problem 03/08/2020 12:00:00 AM EDT [place] ([facility]) 84841418 Nasal congestion Nasal Congestion Problem 020 12:00:00 AM EDT - 03/07/2021 12:00:00 AM EDT [facility] ([facility]) 45334848 Hyperlipidemia Hyperlipidemia Problem 03/08/2020 12:00: 00 AM EDT [place] ([facility]) 489296298 Breast neoplasm screening status Breast Neoplasm Screening Status Problem 03/08/2020 12:00:00 AM EDT - 03/07/2021 12:00:00 AM ED T [place] ([facility]) [id number] Procedure by method Procedure by Method Problem 0 03/08/2020 12:00:00 AM EDT - 03/07/2021 12:00:00 AM EDT [place] ([facility]) 628617117 Screening for malignant neoplasm of colo n Screening for Malignant Neoplasm of Colon Problem 03/08/2020 12:00:00 AM EDT [place] ([facility]) 145378778 Increased frequency of urination Increased Frequ ency of Urination Problem 03/08/2020 12:00:00 AM EDT [place] ([facility]) 49903313 Nasal congestion Nasal Congestion Problem 12:00:00 AM EDT - 03/07/2021 12:00:00 AM EDT [place] ([facility]) 45256036 Hyperlipidemia Hyperlipidemia Problem 03/08/2020 12:00: 00 AM EDT [place] ([facility]) 830346928 Breast neoplasm screening status Breast Neoplasm Screening Status Problem 03/08/2020 12:00:00 AM EDT [place] ([facility]) 86202385 Screening procedure Screening Procedure Problem 0 03/08/2020 12:00:00 AM EDT [place] ([facility]) [id number] Procedure by method Procedure by Method Problem 0 03/08/2020 12:00:00 AM EDT [place] ([facility]) [id number] Increased frequency of urination Increased Frequ ency of Urination Problem 03/08/2020 12:00:00 AM EDT [place] ([facility]) [id number] Nasal congestion Nasal Congestion Problem 03/08/2020 12 :00:00 AM EDT [place] ([facility]) [id number] Hyperlipidemia Hyperlipidemia Problem 03/08/2020 12:00: 00 AM EDT [place] ([facility]) [id number] Breast neoplasm screening status Breast Neoplasm Screening Status Problem 03/08/2020 12:00:00 AM EDT [place] ([facility]) [id number] Screening procedure Screening Procedure Problem 0 03/08/2020 12:00:00 AM EDT [place] ([facility]) [id number] Procedure by method Procedure by Method Problem 0 03/08/2020 12:00:00 AM EDT [facility] ([facility]) [id number] Increased frequency of urination Increased Frequ ency of Urination Problem 03/08/2020 12:00:00 AM EDT [place] ([facility]) [id number] Nasal congestion Nasal Congestion Problem 03/08/2020 12 :00:00 AM EDT [place] ([facility]) [id number] Hyperlipidemia Hyperlipidemia Problem 03/08/2020 12:00: 00 AM EDT [place] ([facility]) [id number] SNOMED CT Concept SNOMED CT Concept Problem 11/22 12:00:00 AM EDT - 03/07/2021 12:00:00 AM EDT [place] ([facility]) [id number] SNOMED CT Concept SNOMED CT Concept Problem 11/22 12:00:00 AM EDT - 03/07/2021 12:00:00 AM EDT [place] ([facility]) [id number] SNOMED CT Concept SNOMED CT Concept Problem 11/22 12:00:00 AM EDT - 03/07/2021 12:00:00 AM EDT [place] ([facility]) Surgeries/Procedures No Information Results ID Date Data Source [id number] 03/07/2021 03:40:00 PM EDT [facility]) Name Value Range Interpretation Code Description Data Valery rce(s) Supporting Document(s) Bacteria identified in Urine by Culture see note Abnormal (applies to non- numeric results) Culture, Urine, Routine [facility]) ID Date Data Source [id number] 03/07/2021 03:40:00 PM EDT [facility]) Name Value Range Interpretation Code Description Data Valery rce(s) Supporting Document(s) Bacteria identified in Urine by Culture see note Abnormal (applies to non- numeric results) Culture, Urine, Routine [place] ([facility]) ID Date Data Source [id number] 03/07/2021 03:40:00 PM EDT [place] ([facility]) Name Value Range Interpretation Code Description Data Valery rce(s) Supporting Document(s) Bacteria identified in Urine by Culture see note Abnormal (applies to non- numeric results) Culture, Urine, Routine [place] ([facility]) ID Date Data Source [id number] 03/07/2021 03:14:00 PM EDT [place] ([facility]) Name Value Range Interpretation Code Description Data Valery rce(s) Supporting Document(s) bilirubin neg Bilirubin [place] ([facility]) glucose neg Glucose [place] ([facility]) blood +- Blood [place] ([facility]) nitrite neg Nitrite [place] ([facility]) leukocytes neg Leukocytes [place] ([facility]) ketone +- Ketone [place] ([facility]) pH Ph [place] ([facility]) protein neg Protein [place] ([facility]) specific gravity Specific [place] [facility] ([facility]) urobilinogen Urobilinogen [place] ([facility]) ID Date Data Source [id number] 03/07/2021 03:14:00 PM [facility] Name Value Range Interpretation Code Description Data Valery rce(s) Supporting Document(s) bilirubin neg Bilirubin [place] ([facility]) blood +- Blood [place] ([facility]) leukocytes neg Leukocytes [place] ([facility]) ketone +- Ketone [place] ([facility]) glucose neg Glucose [place] ([facility]) protein neg Protein [place] ([facility]) nitrite neg Nitrite [place] ([facility]) pH Ph [place] ([facility]) specific gravity Specific [place] [facility]) urobilinogen Urobilinogen [place] ([facility]) ID Date Data Source [id number] 03/07/2021 03:14:00 PM EDT [place] ([facility]) Name Value Range Interpretation Code Description Data Valery rce(s) Supporting Document(s) bilirubin neg Bilirubin [place] ([facility]) blood +- Blood [place] ([facility]) glucose neg Glucose [place] ([facility]) ketone +- Ketone [place] ([facility]) pH Ph [place] ([facility]) leukocytes neg Leukocytes [place] ([facility]) nitrite neg Nitrite [place] ([facility]) protein neg Protein [place] ([facility]) urobilinogen Urobilinogen [place] ([facility]) specific gravity Specific [place] [facility]) ID Date Data Source [id number] 03/14/2020 10:09:01 AM EDT [facility] In-House Urine TestsDate/Time Colle cted: March 14, 2020 10:09 AMTest Result Reference Range Normal ValueMonique Noel, March 14, 2020 10:09 AMBlood TestsDate/Time Collected: March 14, 2020 10:09 AMTest Result Reference Range Normal ValueComments: taken from left ac, tolerated well.Monique Noel, March 14, 2020 10:09 AMAssessment & Plan Orders:[id number] Vst-Est Level I [CPT-42589] 70322 - Venipuncture [CPT-02487] Name Value Range Interpretation Code Description Data Valery rce(s) Supporting Document(s) ID Date Data Source [id number] 03/14/2020 10:05:00 AM EDT [facility] Name Value Range Interpretation Code Description Data Valery rce(s) Supporting Document(s) APPEARANCE U CLEAR CLEAR N [facility] SPEC GR URIN 1.017 1.002-1.035 N [facility] UA COLOR YELLOW YELLOW N [facility] ID Date Data Source [id number] 03/08/2020 12:43:43 PM EDT [facility] Measurements & CalculationsHeight: 66 inches (5 ft. 6 in.) 167.64 cm Weight: 132 pounds 6 oz. 60.17 kg Body Mass Index (BMI): 21.44BMI Interpretation: Healthy WeightBody Surface Area (BSA): 1.68Weight Management Education Done (Nutrition/Physical Activity)Vital SignsTemperature: 95.9F tympanic Pulse Rate: 78 beats/minuteRespiratory Rate: 20 respirations/minuteBlood Pressure: 118/77 right arm sitting automaticO2 Saturation: 98% sittingVital Signs performed by: Willian Jaramillo MA, March 08, 2020 1:08 PMInitial Intake Information From: patientRoom #: 11Infectious Disease / Travel ScreeningRecent travel for you or any close contacts? NoHave you had any close contact with anyone diagnosed with or under investigation for COVID-19 (coronavirus)? NoFever? NoRespiratory symptoms: cough, cold, congestion, shortness of breath, difficulty breathing? YesLoss of smell? NoLoss of taste? NoDetails: Cough & SOB pt reports due to smokingSmoking, Tobacco, Vaping or Smoke Exposure StatusSmoke Status: current every day smokerTobacco Use: YesAdv to Quit: YesDo you vape? NoMenstrual HistoryAge at Menarche: pt states has not had period for "20 yrs or so"Any possibility of ? NoHealthcare HistorySince your last office visit...Have you been admitted to the hospital? NoHave you been to an emergency room (ER) or urgent care clinic? NoHave you seen another healthcare provider? NoHave you seen a dentist? NoIntake performed by: Willian Jaramillo MA, March 08, 2020 12:51 PMRate Your HealthIn general, would you say your health is? FairPain AssessmentAre you currently having any pain which... You would like your provider to address? Yes Affects your activity level? YesPain AssessmentPain ScaleNumeric Rating Scale: 10 / 10Location: face, sinusesDuration: 1 dayFrequency: DailyCharacter/Quality: aching, throbbing and pressureIs the pain radiating? NoPRAPARE Sociodemographic Characteristics Race: White Ethnicity: Not or Preferred Language: EnglishFamily and Home Address: [address] [place] [address] What is your housing situation today? I have housing Are you worried about losing your housing? NoMoney and Resources What is the highest level of school that you have finished? none-8th grade Employed? No Are you seeking work? No Insurance: Managed Care - [facility] Community PlanIn the past year, have you or any family members you live with been unable to get any of the following when it was really needed? Denies Insecurity: food, utilities, clothing, child care coordinator, phone, legal servicesIn the past year, have you had trouble affording costs associated with health insurance (such as deductibles, co-payments, etc.)? NoSocial and Emotional Health How often do you see or talk to people that you care about and feel close to? Less than once a week How stressed are you? Not at allAdditional Optional Domains In the past 3 months, have you spent more than 2 nights in a row in a half-way, custodial, care home center or juvenile correctional facility? No Has lack of transportation kept you from medical appointments or from getting your medications? NoIn the past year, have you had trouble getting any of the following when it was really needed (check all that apply)?noneIn the past year, have you had trouble paying the costs associated with health care or medicine (such as co-payments, costs for services, prices of medicines)? NoHow confident are you that you can control and manage most of your health problems? Somewhat confident Are you a refugee? No (Country of origin: [place]) Do you feel physically and emotionally safe where you live? Yes In the past year, have you been afraid of a partner, ex-partner? YesScreening, Brief Intervention, & Referral to Treatment (SBIRT)Pre-Screening Questions How many times have you have 4 or more drinks in a day? 0How many times have you used an illegal drug or used a prescription medication for a non- medical reason? 0Performed by: Willian Jaramillo MA, March 08, 2020 12:56 PMPatient History Medical History:Thyroid DisorderAsthmaD and CSurgical History:pjjdohyzaute-xbqgqxspchjds-luitg removedcystes on head removedc- sectionFamily History:FH- CASocial/Personal History:Passive smoke exposure - yesAlcohol Use - noDrug Use - noHIV/High Risk - noRegular Exercise - yesSmoking History:Patient currently smokes every day.Marital Status- Advised to Quit/Tobacco Education: YesNurses Note 55 yo female pt FU New PE, pt reports sever sinus pain today. Pt reports the pain started yesterday. Pt reports taking NO meds at this time.Pt reports her frequent cough is due to smoking.Pt needed 2 cups of water today to be able to talk and answer question for her chart.Pt reports suspecting yeast infection because when she coughs, she urinates. pt states it started "not too long ago"Gave pt fit test to take home & return (03/08/2020)Chief Complaintroutine physical exam/ New PEHistory of Present Illness (HPI)55 yo female with history of alcohol abuse, hyperlipidemia, chronic cough/asthma, depression, hypothyroid, GERD, and benign renal cyst presents to establish care. Has never seen a plastics patternmaker. No bowel concerns. Does note that she has new onset sinus congestion, sinus pressure, and nasal drainage x 1 day. No fever, chills, n/v/d, ear pain,sore throat, stridor, trismus, SOB, dyspnea. Chronic cough for several years secondary to smoking but also potential asthma. She requests rescue inhaler, has had one in the past with benefit. Would also like to discuss possible UTI for urinary frequency and leakage when coughing. No dysuria, hematuria, urgency, vaginal discharge, abd pain,fever, chills, n/v, or vaginal bleeding. Current smoker, declines smoking cessation. No other concerns or complaints.Adult Preventive CareScreening Tobacco Screening: Smoking Status: current every day smoker (03/08/2020) Tobacco Use: Currently (03/08/2020) Advised to Quit: Yes (03/08/2020)Labs/Meds/Other Counseling-Nutrition and Physical Activity:BMI Interpretation: Healthy Weight (03/08/2020) Counseling: Done (03/08/2020) Physical Activity: Done (03/08/2020)Cancer Screening Mammogram Reviewed:Yes11/22/2014 Today's Comments: pt states she would like a referral for mammogram today (03/08/2020)Pap Smear/HPV TestingReviewed: Today's Comments: pt states she will make appt at clinic on [facility] soon (03/08/2020)Review of Systems General: Denies loss of appetite, chills, dizziness, fatigue, fever, continued fever, headache, feeling ill, sweats, night sweats, sleep disturbances, weight loss. Eyes: Denies blurring of vision, double vision, irritation, discharge, vision loss, eye pain, eye swelling, droopy eyelid, sensitivity to light, redness, itching. Ears/Nose/Throat: Complains of nasal congestion, runny nose. Denies earache, ear discharge, ringing in ears, decreased hearing, nosebleeds, sore throat, hoarseness, difficulty swallowing, dry mouth, tooth pain, bleeding gums, swollen glands. Cardiovascular: Denies chest pain, palpitations, feeling faint, trouble breathing w/exertion, SOB upon lying down, SOB at night, peripheral edema, elevated blood pressure, decreased heart rate. Respiratory: Complains of cough. Denies difficulty breathing, shortness of breath, excessive sputum, coughing up blood, wheezing, chest pain. Breast: Denies discoloration, tenderness, breast changes, breast lump, nipple discharge. Gastrointestinal: Denies nausea, vomiting, bleeding, burning, itching, irritation, cramps, diarrhea, bloody diarrhea, watery diarrhea, constipation, pain or discomfort, feeling any lumps or bumps, pain with BM, pain during receptive anal sex, change in bowel habits, fecal incontinence, abdominal pain, blood in stool, black or tarry stools, jaundice, heartburn, urge to defecate. Genitourinary: Complains of urinary incontinence, urinary frequency. Denies pain with urination, burning with urination, urinary hesitancy, urinary urgency, urinary urgency at night, incomplete emptying, blood in urine, absence of menstrual period, heavy menstrual period, prolonged menstrual period, pelvic pain, abnormal vaginal bleeding, painful intercourse, vaginal discharge, vaginal sores, vaginal itching, genital foul odor, genital sores, genital burning, genital itching, genital warts, anal discharge, anal sores, anal warts. [facility] uloskeletal: Denies back pain, joint pain, leg pain, other pain-see comments, joint swelling, body aches, muscle aches, muscle cramps, muscle weakness, stiffness, recent injury. Skin: Denies rash, hives, redness, itching, dryness, nail changes, suspicious lesions, athlete's foot, rash on palms, rash on bottom of feet. Neurologic: Denies muscle impairment, weakness, numbness/tingling, seizures, slurred speech, feeling faint, tremors, vertigo, paralysis on one side, paralysis on both sides. Psychiatric: Denies depression, anxiety, memory loss, mental disturbance, suicidal ideation, homicidal ideation, hallucinations, paranoia, feeling stressed, hearing voices. Endocrine: Denies cold intolerance, heat intolerance, excessive thirst, excessive hunger, excessive urination, weight loss, weight gain. Heme/Lymphatic: Denies abnormal bruising, bleeding, enlarged lymph nodes. Allergic/Immunologic: Denies hives, swelling, hay fever. Physical ExamGeneral Appearance: appears older than stated age, in no acute distress Eyes, External: conjunctivae and lids normal, EOMIExternal Ears: normal, no lesions or deformitiesOtoscopy: canals clear, tympanic membranes intact, no fluid, light reflex intact bilaterallyNasal: Slight swelling of turbinates. Minimal frontal sinus tendernessPharynx: tongue normal, posterior pharynx without erythema or exudate, no thrush/aphthous ulcerRespiratory, Auscultation: clear to auscultation bilaterally; no rales, rhonchi, or wheezesRespiratory, Effort: no intercostal retractions or use of accessory musclesCardiovascular, Auscultation: S1, S2 audible; no murmur, rub, or gallop; RRRAbdomen: soft, non-tender, no masses, bowel sounds normalSkin, Inspection: no rashes, lesions, or ulcerationsCervical Nodes: no adenopathyOrientation: oriented to time, place, and personMood & Affect: no depression, anxiety, or agitationRate Your HealthIn general, would you say your health is? FairAssessment & Plan Problems:Added: Encounter for general adult medical examination with abnormal findings (ICD-V70.0) (UXY71-K04.01)Hyperlipidemia (ICD-272.4) (USG85-G97.5) Assessment: history of , due for labs.Screening for malignant neoplasm of colon (QJZ17-C13.11) Assessment: pt agreeable to FIT test, declines colonoscopy despite counselingFrequency of urination (ICD-788.41) (YBI20-R72.0) Assessment: UA wnl. likely due to frequent harsh coughing. advised pt to monitor symptoms and follow up if worsening or new symptoms arise. there is a hx of OAB noted in the chart which is also likely contributing.Encounter for other screening for malignant neoplasm of breast (WQJ85-A03.39) Assessment: mammo order providedCongestion of nasal sinus (ICD- 478.19) (OYZ68-O05.81) Assessment: likely environmental. will trial nasal steroid. discussed supportive care. follow up if not improving or worsening.Assessed:COUGH (ICD-786.2) (JBN81-O55) Assessment: chronic, pt states due to smoking and history of asthma. will get into pulm for PFTs. sent prn albuterol as patient has had them in the past with benefit. explained proper useTOBACCO ABUSE (ICD-305.1) (BKT14-P37.200) Assessment: Pt was counseled on smoking cessation and declines quitting at this time.HYPOTHYROIDISM (ICD-244.9) (XKC38-Y67.9) Assessment: not currently on any medications. will get labs and proceed based on testing.Assessment not SavedEncounter for general adult medical examination with abnormal findings (VIY22-F15.01): Health maintenance updated. Pt was counseled on healthy lifestyle choices. Colon CA, breast Ca screening ordered. Pap to be scheduled at follow up.Medication Changes:New Prescription:NASONEX 50 MCG/ACT NASAL SUSPENSION-1 spray twice a day Qty: 10[Milliliter] Refills: 2 Method: ElectronicPROAIR HFA 108 (90 BASE) MCG/ACT INHALATION AEROSOL SOLUTION-2 puffs every 6 hours as needed for cough Qty: 1 20[Inhalation] Refills: 0 Method: ElectronicRemoved:PROVENTIL HFA 108 (90 BASE) MCG/ACT INHALATION AEROSOL SOLUTION-1 puff every 4 to 6 hours as needed for cough, wheezing or shortness of breathOrders:Mammogram, Bilateral [CPT- 77716] Pulmonology Consult [CPT-78630] COMP METABOLIC PANEL [CPT-57792] CBC W/DIFF [CPT-93340] LIPID PANEL [CPT-76362] TSH [CPT-81984] T-4 free [CPT-84440] URINALYSIS [CPT-70450] FIT DNA [CPT-60772] Preventive, New, (40-64) [CPT-27421] Adult - Ofc Vst, NEW, Level II [CPT-88353] Follow-Up Return to clinic: in 10 days for physicalAdditional Follow-Up: pap and lab reviewMedications:PROAIR HFA 108 (90 BASE) MCG/ACT INHALATION AEROSOL SOLUTION (ALBUTEROL SULFATE) 2 puffs every 6 hours as needed for cough #120[Inhalation] x 0 Route:INHALATION Entered and Authorized by: Roma OLIVEIRA Method used: Electronically to [facility]* (retail) [address] [place] [address] Note to Pharmacy: Route: INHALATION; RxID: [id number] 50 MCG/ACT NASAL SUSPENSION (MOMETASONE FUROATE) 1 spray twice a day #10[Milliliter] x 2 Route:NASAL Entered and Authorized by: Roma OLIVEIRA Method used: Electronically to [facility]* ([place]) [address] [place] [address] Fax: Note to Pharmacy: Route: NASAL; RxID: [id number] In- House Urine TestsDate/Time Collected: March 08, 2020 1:53 PMDate/Time Received: March 08, 2020 1:53 PMTest Result Reference Range Normal ValueRoutine Urinalysis Color: light yellow Yellow Appearance: clear Clear Leukocytes: negative Negative Nitrite: negative Negative Urobilinogen: 3.5 Negative Protein: negative Negative pH: 6.0 5.0-6.5 Blood: 3+ Negative Specific [place]: 1.015 1.020>=1.030 Ketone: negative Negative Bilirubin: negative Negative Glucose: negative NegativeWillian Jaramillo MA, March 08, 2020 1:55 PM _ Name Value Range Interpretation Code Description Data Valery rce(s) Supporting Document(s) ID Date Data Source [id number] 03/08/2020 12:43:43 PM EDT [facility] Name Value Range Interpretation Code Description Data Valery rce(s) Supporting Document(s) APPEARANCE U clear [facility] BILIRUBIN UR negative [facility] BLOOD UR DIP 3+ [facility] GLUCOSE, URN negative [facility] KETONES URN negative [facility] NITRITE URN negative [facility] PH URINE 6.0 [facility] PROTEIN, URN negative [facility] SPEC GR URIN 1.015 [facility] UA COLOR light yellow [facility] UROBILINOGEN 3.5 [facility] WBC DIPSTK U negative [facility] Procedure Social History No Information Vital Signs ID Date Data Source UNK Name Value Range Interpretation Code Description Data Source(s) Diastolic blood pressure 85 mm[Hg] 85 mm[Hg] [place] ([facility]) Body height 66 [in_i] 66 [in_i] [place] ([facility]) Body mass index (BMI) [Ratio] 23.1 kg/m2 23.1 k g/m2 [place] ([facility]) Body mass index (BMI) [Ratio] 23.1 kg/m2 23.1 k g/m2 [place] ([facility]) Systolic blood pressure 121 mm[Hg] 121 mm[Hg] A [facility] ([facility]) Body weight 2288 [oz_av] 2288 [oz_av] [place] ([facility]) Diastolic blood pressure 85 mm[Hg] 85 mm[Hg] [place] ([facility]) Body height 66 [in_i] 66 [in_i] [place] ([facility]) Systolic blood pressure 121 mm[Hg] 121 mm[Hg] A [facility] ([facility]) Body weight 2288 [oz_av] 2288 [oz_av] [place] ([facility]) Diastolic blood pressure 85 mm[Hg] 85 mm[Hg] [place] ([facility]) Systolic blood pressure 121 mm[Hg] 121 mm[Hg] [facility] Body weight 2288 [oz_av] 2288 [oz_av] [place] ([facility]) Body height 66 [in_i] 66 [in_i] [place] ([facility]) Body mass index (BMI) [Ratio] 23.1 kg/m2 23.1 k g/m2 [place] ([facility]) Body height 66 [in_i] 66 [in_i] [place] ([facility]) Diastolic blood pressure 77 mm[Hg] 77 mm[Hg] [place] ([facility]) Systolic blood pressure 118 mm[Hg] 118 mm[Hg] [facility] Body mass index (BMI) [Ratio] 21.44 kg/m2 21.44 kg/m2 [place] ([facility]) Diastolic blood pressure 77 mm[Hg] 77 mm[Hg] [place] ([facility]) Body weight 2118.08 [oz_av] 2118.08 [oz_av] ATH [facility] ([facility]) Body height 66 [in_i] 66 [in_i] [place] ([facility]) Body mass index (BMI) [Ratio] 21.44 kg/m2 21.44 kg/m2 [place] ([facility]) Systolic blood pressure 118 mm[Hg] 118 mm[Hg] [facility] Body weight 2118.08 [oz_av] 2118.08 [oz_av] ATH [facility] ([facility]) Diastolic blood pressure 77 mm[Hg] 77 mm[Hg] [place] ([facility]) Body height 66 [in_i] 66 [in_i] [place] ([facility]) Body mass index (BMI) [Ratio] 21.44 kg/m2 21.44 kg/m2 [place] ([facility]) Systolic blood pressure 118 mm[Hg] 118 mm[Hg] A [facility] ([facility]) Body weight 2118.08 [oz_av] 2118.08 [oz_av] ATH [facility] ([facility]) Body height 66 [in_i] 66 [in_i] [place] ([facility]) Body mass index (BMI) [Ratio] 21.44 kg/m2 21.44 kg/m2 [place] ([facility]) Systolic blood pressure 118 mm[Hg] 118 mm[Hg] [facility] Body weight 2118.08 [oz_av] 2118.08 [oz_av] ATH [facility] ([facility]) Diastolic blood pressure 77 mm[Hg] 77 mm[Hg] [facility] ([facility]) Diastolic blood pressure 77 mm[Hg] 77 mm[Hg] [facility] ([facility]) Body height 66 [in_i] 66 [in_i] [place] ([facility]) Body mass index (BMI) [Ratio] 21.44 kg/m2 21.44 kg/m2 [facility] [facility] Systolic blood pressure 118 mm[Hg] 118 mm[Hg] A [facility] ([facility]) Body weight 2118.08 [oz_av] 2118.08 [oz_av] A[facility] ([facility])
[2021-04-13] MEDS ORDERED: methylPREDNISolone 125MG 2ML VIAL IV ONE (15:05)
--- NOTE | 2021-04-13 15:25 | REP ---
INDICATION: DYSPNEA/COUGH COMPARISON: None. TECHNIQUE: Portable AP view of the chest FINDINGS: The mediastinum and cardiac silhouette are within normal limits for portable technique. The lung gardner are clear without acute consolidation, effusion, or pneumothorax. Skeletal structures are intact. IMPRESSION: No acute cardiopulmonary process appreciated. <Electronically signed by José Miguel Snider > 04/13/21 [id number]
[2021-04-13 15:59] LABS: BASO % 0.3 % (0.0-1.0); EOS # 0.2 10^3/uL (0.0-0.5); EOS % 1.7 % (0.0-3.0); HEMATOCRIT 47.1 % (36.0-47.0); LYMPH # 3.1 10^3/uL (1.5-5.0); LYMPH % 35.7 % (24.0-44.0); MEAN CORPUSCULAR HEMOGLOBIN 35.2 pg (27.0-33.0); MEAN CORPUSCULAR VOLUME 103.7 fl (80.0-96.0); MONO # 0.8 10^3/uL (0.0-0.8); MONO % 9.5 % (2.0-8.0); NEUTROPHILS # 4.5 10^3/uL (1.5-8.5); NEUTROPHILS % 52.5 % (36.0-66.0); PLATELET COUNT, AUTOMATED 304 10^3/uL (150-450); RED BLOOD COUNT 4.54 10^6/uL (4.00-5.40); WHITE BLOOD COUNT 8.6 10^3/uL (4.0-10.0)
[2021-04-13] MEDS ORDERED: KETOROLAC 30 MG/ML 1ML VIAL IV ONE (16:05)
[2021-04-13 16:34] LABS: ALBUMIN 3.6 GM/DL (3.2-5.2); ALT/SGPT 61 U/L (12-78); BILIRUBIN,DIRECT 0.1 MG/DL (0.0-0.2); BILIRUBIN,TOTAL 0.3 MG/DL (0.2-1.0); BLOOD UREA NITROGEN 8 MG/DL (7-18); CALCIUM LEVEL 9.4 MG/DL (8.5-10.1); CARBON DIOXIDE LEVEL 29 MEQ/L (21-32); CHLORIDE LEVEL 110 MEQ/L (98-107); CK-MB VALUE MASS < 1.0 NG/ML (<3.6); CPK CREATINE PHOSPHOKINASE 108 U/L (26-192); CREATININE FOR GFR 0.85 MG/DL (0.55-1.30); GLOMERULAR FILTRATION RATE > 60.0 (>51); GLUCOSE, FASTING 79 MG/DL (70-100); MB/CK RELATIVE INDEX 0.93 (< OR =4); NT-PRO BNP 13 PG/ML (<125); SODIUM LEVEL 144 MEQ/L (136-145); THYROID STIMULATING HORMONE 0.485 uIU/ML (0.358-3.740); TOTAL PROTEIN 7.3 GM/DL (6.4-8.2); TROPONIN I < 0.02 NG/ML (< 0.10)
[2021-04-13] MEDS ORDERED: ISOVUE-370 76% 100ML VIAL As Ordered ONE (17:00)
[2021-04-13 17:20] LABS: ETHYL ALCOHOL (ETHANOL) 0.015 % (0.000-0.010)
[2021-04-13] MEDS ORDERED: ALBU8.5H (18:22)
[2021-04-13] MEDS ORDERED: MORPHINE 2 MG/ML 1ML VIAL (J2270) IV ONE (18:25)
--- NOTE | 2021-04-13 18:32 | REPVR ---
PROCEDURE INFORMATION: Exam: CTA Chest With Contrast Exam date and time: 04/13/2021 5:07 PM Age: 56 years old Clinical indication: Shortness of breath; Additional info: Severe SOB; R/O pe; Llq pain TECHNIQUE: Imaging protocol: Computed tomographic angiography of the chest with contrast. 3D rendering (Not supervised by radiologist): MIP and/or 3D reconstructed images were created by the technologist. Radiation optimization: All CT scans at this facility use at least one of these dose optimization techniques: automated exposure control; mA and/or kV adjustment per patient size (includes targeted exams where dose is matched to clinical indication); or iterative reconstruction. Contrast material: ISOVUE 370; Contrast volume: 100 ml; Contrast route: INTRAVENOUS (IV); COMPARISON: CT Chest with contrast 02/12/2019 11:40 PM FINDINGS: Pulmonary arteries: No focal pulmonary artery filling defect to suggest acute pulmonary embolus. Pulmonary vascular/interstitial pattern does not suggest active pulmonary edema. Aorta: No thoracic aortic aneurysm or dissection. Lungs: No suspicious lung mass or air space process. No central endobronchial lesion. Apical predominant centrilobular emphysema changes are present. Pleural spaces: No pleural effusion or pneumothorax. Heart: No overt cardiac enlargement or abnormal volume of pericardial fluid. Lymph nodes: No enlarged mediastinal lymph nodes. Bones/joints: Bony structures show no acute fracture or destructive process. Soft tissues: Unremarkable. IMPRESSION: 1. No evidence of acute pulmonary embolus. 2. No other acute or concerning focal intrathoracic abnormality. 3. Apical predominant centrilobular emphysema Electronically signed by: Young Harley On 04/13/2021 18:32:08 PM
--- NOTE | 2021-04-13 18:47 | REPVR ---
PROCEDURE INFORMATION: Exam: CT Abdomen And Pelvis With Contrast Exam date and time: 04/13/2021 5:07 PM Age: 56 years old Clinical indication: Abdominal pain; Additional info: Severe SOB; R/O pe; Llq pain TECHNIQUE: Imaging protocol: Computed tomography of the abdomen and pelvis with contrast. Radiation optimization: All CT scans at this facility use at least one of these dose optimization techniques: automated exposure control; mA and/or kV adjustment per patient size (includes targeted exams where dose is matched to clinical indication); or iterative reconstruction. Contrast material: ISOVUE 370; Contrast volume: 100 ml; Contrast route: INTRAVENOUS (IV); COMPARISON: CT ABD/PEL W/IV CONTRAST ONLY 02/12/2019 11:40 PM FINDINGS: Lungs: No suspicious mass or airspace process in the visualized lung bases. Liver: Liver appears normal with no focal abnormality. Gallbladder and bile ducts: Gallbladder is present and shows no evidence of gallstone. Pancreas: Pancreas appears normal. No focal mass or peripancreatic inflammation. Spleen: Spleen appears homogeneous without focal mass. Adrenal glands: Adrenal glands are normal in appearance. Kidneys and ureters: Kidneys are unremarkable aside from a benign right renal 2 cm cyst Stomach and bowel: No evidence of small bowel obstruction. No evidence of acute diverticulitis. Appendix: Normal caliber appendix is identified, with no adjacent inflammation. Intraperitoneal space: No pneumoperitoneum. Vasculature: No aortic aneurysm. Lymph nodes: No enlarged lymph nodes. No abnormal pelvic sidewall lymph nodes. Urinary bladder: Urinary bladder appears normal. Reproductive: Female reproductive organs appear unremarkable. Bones/joints: Bony structures show no acute fracture or destructive process. Soft tissues: Unremarkable. IMPRESSION: No acute surgical or inflammatory intra-abdominal or pelvic process. No explanation for acute abdominal or pelvic symptoms. Electronically signed by: Young Harley On 04/13/2021 18:46:35 PM
[2021-04-13 19:40] VITALS: O2SAT 94
[2021-04-13] MEDS ORDERED: PRED10TA2 PO (19:53)
[2021-04-13] MEDS ORDERED: METH-1165 PO (19:53)
--- NOTE | 2021-04-13 19:59 | ECGEPIP ---
[facility] - ED Test Date: 2021-04-13 Pat Name: LULA THAYER Department: Room: - Gender: Female [employer] Operator: RADHA : 1965 Requested By: MARIZA HEIN Order Number: [id number] Reading MD: Darrel Ro Measurements Intervals [place] Rate: 76 P: 65 NH: 144 QRS: 29 QRSD: 84 T: 50 QT: 424 QTc: 477 Interpretive Statements Normal sinus rhythm BASELINE ARTIFACT AFFECTS INTERPRETATION Electronically Signed on 04-13-2021 19:59:22 EDT by Darrel Ro
[2021-04-13 20:00] VITALS: BP 131/78
== END 2021-04-13 20:13 | disposition home or self-care (01) ==
LOC: M ED 14:32
DX: J44.1 Chronic obstructive pulmonary disease with (acute) exacerbation (principal); S39.011A Strain of muscle, fascia and tendon of abdomen, initial encounter; X58.XXXA Exposure to other specified factors, initial encounter; Y92.9 Unspecified place or not applicable; Y93.9 Activity, unspecified; Y99.9 Unspecified external cause status; M54.50 Low back pain, unspecified; F17.200 Nicotine dependence, unspecified, uncomplicated
CPT/HCPCS: 71045; 71275; 74177; 80048; 80076; 82077; 82550; 82553; 83605; 83880; 84443; 85025; 87040; 87798; 93005; 93041; 94760; 96374; 96375; 99284; J1885; J2270; J2930; Q9967

== ENCOUNTER 2021-08-11 00:52 | Emergency (ER) | payer OTHER ==
[~2021-08-11] VITALS: Ht 160 cm; Wt 65.1 kg
[~2021-08-11 00:52] MED LIST changes: +ALBU8.5H; +METH-1165 PO; +PRED10TA2 PO
[2021-08-11 04:45] VITALS: BP 106/67
[2021-08-11] MEDS ORDERED: KETOROLAC 60MG 2ML VIAL IM ONE (05:00)
[2021-08-11] MEDS ORDERED: NAPR-837 PO (05:03)
== END 2021-08-11 05:25 | disposition home or self-care (01) ==
LOC: M ED 00:52
DX: S83.91XA Sprain of unspecified site of right knee, initial encounter (principal); W00.0XXA Fall on same level due to ice and snow, initial encounter; Y92.9 Unspecified place or not applicable; Y93.9 Activity, unspecified; Y99.9 Unspecified external cause status; F17.200 Nicotine dependence, unspecified, uncomplicated
CPT/HCPCS: 73564; 96372; 99284; J1885

== ENCOUNTER → 2021-11-25 | Outpatient (CLI) | payer OTHER | LOC: M WHC 09:50 | PROVIDERS: ATTEND Physician Assistant | DX: N64.4 Mastodynia (principal) | CPT/HCPCS: 77066; G0279 ==

== ENCOUNTER → 2023-08-13 | Outpatient (REF) | payer OTHER ==
[2023-08-13 16:49] LABS: APPEARANCE, URINE CLOUDY (CLEAR); BACTERIA, URINE AUTO 1+ (NEGATIVE); BILIRUBIN, URINE AUTO NEGATIVE (NEGATIVE); BLOOD, URINE BLOOD NEGATIVE (NEGATIVE); COLOR, URINE YELLOW (YELLOW); GLUCOSE, URINE (UA) AUTO NEGATIVE (NEGATIVE); KETONE, URINE AUTO NEGATIVE (NEGATIVE); LEUKOCYTE ESTERASE, URINE AUTO 3+ (NEGATIVE); MUCUS, URINE SMALL (NEGATIVE); NITRITE, URINE AUTO NEGATIVE (NEGATIVE); PROTEIN, URINE AUTO NEGATIVE (NEGATIVE); RBC, URINE AUTO 10 /HPF (0-3); SPECIFIC GRAVITY URINE AUTO 1.023 (1.002-1.035); SQUAMOUS EPITHELIAL CELL UR AU 10 /HPF (0-6); UROBILINOGEN, URINE AUTO 0.2 mg/dL (0.0-2.0); WBC, URINE AUTO 53 /HPF (0-3)
== END ==
LOC: M LAB REF 16:13
PROVIDERS: ATTEND Physician Assistant
DX: N39.0 Urinary tract infection, site not specified (principal)

== ENCOUNTER → 2023-12-13 | Outpatient (REF) | payer OTHER ==
[~2023-12-13] MED LIST changes: +METH-1164 PO
[2023-12-13 13:49] LABS: APPEARANCE, URINE HAZY (CLEAR); BACTERIA, URINE AUTO 1+ (NEGATIVE); BILIRUBIN, URINE AUTO NEGATIVE (NEGATIVE); BLOOD, URINE BLOOD 1+ (NEGATIVE); COLOR, URINE AMBER (YELLOW); GLUCOSE, URINE (UA) AUTO NEGATIVE (NEGATIVE); KETONE, URINE AUTO TRACE mg/dL (NEGATIVE); LEUKOCYTE ESTERASE, URINE AUTO TRACE (NEGATIVE); MUCUS, URINE SMALL (NEGATIVE); NITRITE, URINE AUTO NEGATIVE (NEGATIVE); PROTEIN, URINE AUTO 1+ mg/dL (NEGATIVE); RBC, URINE AUTO 11 /HPF (0-3); SPECIFIC GRAVITY URINE AUTO 1.028 (1.002-1.035); SQUAMOUS EPITHELIAL CELL UR AU 4 /HPF (0-6); WBC, URINE AUTO 6 /HPF (0-3)
== END ==
LOC: M LAB REF 12:24
PROVIDERS: ATTEND Physician Assistant Medical
DX: N39.0 Urinary tract infection, site not specified (principal)

== ENCOUNTER 2023-12-14 06:09 | Emergency (ER) | payer OTHER ==
[~2023-12-14] VITALS: Ht 160 cm; Wt 59.0 kg
[~2023-12-14 06:09] MED LIST changes: -METH-1164 PO
[2023-12-14] MEDS: ACETAMINOPHEN 325 MG TAB PO ONE (07:00)
[2023-12-14] MEDS: LIDOCAINE 5% (LIDODERM) PATCH TD ONE (07:00)
[2023-12-14] MEDS: traMADol 50 MG TAB PO ONE (07:01)
[2023-12-14 08:41] VITALS: BP 125/70; TEMP 97.1; O2SAT 97
[2023-12-14] MEDS ORDERED: METH-1164 PO (09:50)
== END 2023-12-14 10:00 | disposition home or self-care (01) ==
LOC: M ED 06:09
DX: J02.9 Acute pharyngitis, unspecified (principal); M54.50 Low back pain, unspecified; F17.210 Nicotine dependence, cigarettes, uncomplicated; F10.10 Alcohol abuse, uncomplicated; Z79.899 Other long term (current) drug therapy